=== PATIENT | male | born 1940 | race Caucasian/White ===

== ENCOUNTER → 2016-04-06 | Day surgery (SDC) | payer BC ==
[2016-03-31 12:59] VITALS: BMI 27.0
[~2016-04-06] VITALS: Ht 188 cm; Wt 95.5 kg
[~2016-04-06] MED LIST: ADVIN25/60 INH; ALBU18002 INH; ALLO300T2 PO; AMIO200T4 PO; APIX1TAB3 PO; ASPCH81X PO; ATOR-24 PO; CARV12.52 PO; CHOL20009 PO; CIPROFLOXACIN 400MG / 200ML D5W IV ONE; CIPROFLOXACIN 500 MG TAB PO ONE; DOCU100C31 PO; FLUT0.15 NAE; FRS/40 PO; LEVO75TA5 PO; LIDOCAINE HCL 2% 2 ML VIAL (20MG/ML) ONE; MONT1TAB5 PO; NURSING VERBAL MED ORDER ONE; PHENYLEPHRINE 100MCG/ML 5ML SYR ONE; PROPOFOL IV EMULSION 10 MG/ML 20 ML VIAL IV ONE; RANI150T3 PO; REPA2TAB13 PO; ROFL1TAB5 PO; SODIUM CHLORIDE 0.9% 500ML 500 ML IV ONE; SPRIN/30 INH
[2016-04-06 12:17] VITALS: Ht 188 cm; Wt 95.5 kg
--- NOTE | 2016-04-06 13:39 | Endo History and Physical ---
History & Physical Date of Service: Apr 06, 2016. Chief Complaint: HX OF COLON POLYPS Referring Physician: DR. MASSEY History of Present Illness H/o colon polyps Past Surgical History Hx Cardiac Surgery: Yes (HEART CATH-NO STENTS, CABG-2 VESSELS) Hx Internal Defibrillator: Yes ([employer] 2007) Hx Pacemaker: Yes ([employer] 2007) Hx Abdominal Surgery: No Hx of Implantable Prosthesis: No Hx Post-Op Nausea and Vomiting: No Hx Cancer Surgery: No Hx Thoracic Surgery: No Hx Orthopedic: Yes (LUMBAR LAMINECTOMY, LEFT/RT MIGUELITO) Hx Urinary Tract Surgery: No Family History None Social History Smoking Status: Former Smoker Hx Substance Use: No Hx Alcohol Use: Yes (1 GLASS OF WINE EVERY NIGHT) Allergies Coded Allergies: Adhesives (Verified Allergy, Unknown, PULLS SKIN OFF, 04/06/16) Oxaprozin (Verified Allergy, Unknown, KIDNEYS SHUT DOWN, 04/06/16) Current Medications Reported Home Medications Medications Dose Route/Sig Max Daily Dose Days Date Category Vitamin D (Cholecalciferol) 2,000 Unit Tab 1 Tab PO BID 03/31/16 Reported Advair Diskus 250/50 60 Dose (Fluticasone Prop/Salmeterol) 1 Ea Aerp 1 Puff INH BID 03/31/16 Reported Cordarone (Amiodarone Hcl) 200 Mg Tab 200 Mg PO BID 03/31/16 Reported Eliquis (Apixaban) 5 Mg Tab 1 Tab PO BID 03/31/16 Reported Spiriva Handihaler (Tiotropium [place]) 30 Puff/540 Mcg Aerp 1 Cap INH QAM 03/31/16 Reported Daliresp (Roflumilast) 500 Mcg Tab 1 Tab PO QAM 30 03/31/16 Reported Prandin (Repaglinide) 2 Mg Tab 2 Mg PO TID 03/31/16 Reported Zantac (Ranitidine HCl) 150 Mg Tab 150 Mg PO BID 03/31/16 Reported Montelukast Sodium 10 Mg Tab 1 Tab PO QAM 90 03/31/16 Reported Levothyroxine Sodium 75 Mcg Tab 1 Tab PO QAM 90 03/31/16 Reported Lasix (Furosemide) 40 Mg Tab 1.5 Tab PO QAM 03/31/16 Reported Flonase Allergy Relief (Fluticasone Propionate (Nasal)) 50 Mcg/Act Spr 2 Rochert BRITTON DIRECTED PRN 03/31/16 Reported Docusate Sodium 100 Mg Cap 1 Cap PO BID PRN 7 03/31/16 Reported Aspirin Chewable (Aspirin) 81 Mg Chew 81 Mg PO QAM 03/31/16 Reported Zyloprim (Allopurinol) 300 Mg Tab 300 Mg PO QAM 03/31/16 Reported Proair Respiclick (Albuterol Sulfate) 108 Mcg/Act Aer 2 Puff INH QID PRN 03/31/16 Reported Coreg (Carvedilol) 12.5 Mg Tab 1 Tab PO BID 90 03/31/16 Reported Lipitor (Atorvastatin Calcium) 40 Mg Tab 40 Mg PO HS 03/31/16 Reported Vital Signs Weight (Kilograms): 95.45 Height (Feet): 6 Height (Inches): 2 Date Time Temp Pulse Resp B/P Pulse Ox O2 Delivery O2 Flow Rate FiO2 04/06/16 12:18 36.8 66 18 148/85 95 Room Air Physical Exam General Appearance: no apparent distress Respiratory/Chest: Auscultation: breath sounds normal Cardiovascular: Heart Auscultation: RRR Abdomen: Inspection & Palpation: soft Assessment and Plan H/o polyps - cscopy
--- NOTE | 2016-04-06 14:58 | Anesthesiology Progress Note ---
Anesthesia Post Op Note Date & Time Apr 06, 2016 at 14:58 Vital Signs Vital Signs Past 12 Hours Date Time Temp Pulse Resp B/P Pulse Ox O2 Delivery O2 Flow Rate FiO2 04/06/16 12:18 36.8 66 18 148/85 95 Room Air Notes Mental Status: alert / awake / arousable, participated in evaluation Pt Amnestic to Procedure: Yes Nausea / Vomiting: adequately controlled Pain: adequately controlled Airway Patency, RR, SpO2: stable & adequate BP & HR: stable & adequate Hydration State: stable & adequate Anesthetic Complications: no major complications apparent
[2016-04-06 15:19] VITALS: BP 160/69; PULSE 60; O2SAT 96
--- NOTE | 2016-04-06 15:43 | GI REPORT ---
Procedure Date: 04/06/2016 1:36 PM Procedure: Colonoscopy Indications: High risk colon cancer surveillance: Personal history of colonic polyps Medicines: See the Anesthesia note for documentation of the administered medications Complications: No immediate complications. Estimated Blood Loss: Estimated blood loss: none. Procedure: Pre-Anesthesia Assessment: - ASA Grade Assessment: III - A patient with severe systemic disease. After I obtained informed consent, the scope was passed under direct vision. Throughout the procedure, the patient's blood pressure, pulse, and oxygen saturations were monitored continuously. The Scope was introduced through the anus and advanced to the cecum, identified by appendiceal orifice and ileocecal valve. The colonoscopy was performed with difficulty due to number of polyps removed. The patient tolerated the procedure well. Findings: The perianal and digital rectal examinations were normal. Multiple small and large-mouthed diverticula were found in the sigmoid colon and in the descending colon. A 6 mm polyp was found in the ascending colon. The polyp was sessile. The polyp was removed with a saline injection-lift technique using a hot snare. Resection and retrieval were complete. A 15 mm polyp was found at the hepatic flexure. The polyp was semi-sessile. The polyp was removed with a saline injection-lift technique using a hot snare. Resection and retrieval were complete. To prevent bleeding after the polypectomy, four hemostatic clips were successfully placed. There was no bleeding at the end of the procedure. Two sessile polyps were found at the hepatic flexure. The polyps were 4 to 5 mm in size. These polyps were removed with a hot snare. Resection and retrieval were complete. Three sessile polyps were found in the transverse colon. Two of these polyps were removed with a saline injection-lift technique using a hot snare; one of these was removed with a hot snare. Resection and retrieval were complete. Two clips were placed on one of these polypectomy sites, and 1 clip was placed on one of these polypectomy sites. Two sessile polyps were found in the descending colon. The polyps were 2 to 4 mm in size. These polyps were removed with a hot snare. Resection and retrieval were complete. Five polyps were found in the sigmoid colon. The polyps were 2 to 10 mm in size. Three of these polyps were removed with a saline injection-lift technique using a hot snare; two of these were removed with a hot snare. Resection and retrieval were complete. One of these sites was clipped. Impression: - Diverticulosis in the sigmoid colon and in the descending colon. - Fourteen polyps. Recommendation: - Discharge patient to home. Hold Eliquis for 5 days. Repeat exam in 6-12 mos, based on pathology results. Rylee Baltazar M.D. Rylee Baltazar MD 04/06/2016 3:43:19 PM This report has been signed electronically. Note Initiated On: 04/06/2016 1:36 PM I attest to the content of the Intraoperative Record and orders documented therein, exceptions below
--- NOTE | 2016-04-06 15:43 | Discharge Instructions ---
Endoscopy Patient Instructions Date / Procedure(s) Performed Apr 06, 2016. Colonoscopy Allergy Information Coded Allergies: Adhesives (Verified Adverse Reaction, Intermediate, PULLS SKIN OFF, 04/06/16 ) Oxaprozin (Verified Adverse Reaction, Intermediate, KIDNEYS SHUT DOWN, 04/06) Discharge Date / Findings Apr 06, 2016. Multiple polyps, diverticulosis Medication Instructions Stopped Medication(s): PT. STATE HE STOPPED THE MEDICATIONS THEY TOLD HIM TO BUT IS UNSURE OF THE NAME OF ALL OF THEM. Restart Stopped Medication(s): Resume Eliquis in 5 days Provider Instructions Activity Restrictions - No exercising or heavy lifting for 24 hours. - Do not drink alcohol the day of the procedure. - Do not drive a car or operate machinery until the day after the procedure. - Do not make any important decisions or sign important papers in 24 hours after the procedure. Following Day: - Return to full activity which may include returning to work/school. Diet Start your diet with liquids and light foods (jello, soup, juice, toast). Then eat your usual diet if not nauseated. Treatment For Common After Affects For mild abdominal pain, bloating, or excessive gas: - Rest - Eat lightly - Lie on right side Follow-Up Information Follow-up with DR. MASSEY as scheduled Anesthesia Information What You Should Know You have had a procedure that required some medicine to reduce anxiety and discomfort. This treatment is called moderate sedation. After receiving the treatment, you may be sleepy, but you will be able to breathe on your own. The effects of the treatment may last for several hours. Follow these instructions along with Activity/Diet recommendations noted above: * Do NOT do anything where dizziness or clumsiness would be dangerous. * Rest quietly at home today, then you can be up and about tomorrow. * Have a responsible person stay with you the rest of today. * You may have had an I.V. today. If so, you may take the dressing off later today. Recommendations Call your doctor if: * Trouble breathing * Continuous vomiting for more than 24 hours * Temperature above 101 degrees * Severe abdominal pain or bloating * Pain not relieved by pain medicine ordered * There is increased drainage or redness from any incision * A large amount of rectal bleeding greater than 2-3 tablespoons. (If you had a polyp/s removed or have hemorrhoids, a small amount of blood - from the rectum is to be expected.) * You have any unanswered questions or concerns. IN THE EVENT OF A SERIOUS EMERGENCY, GO TO THE NEAREST EMERGENCY ROOM Your discharge instructions were prepared by provider Rylee Feng. Patient Instructions Signature Page Jose Antonio Lemon Patient (or Guardian) Signature/Date: I have read and understand the instructions given to me by my caregivers. Caregiver/RN/Doctor Signature/Date: The above-named patient and/or guardian has received patient instructions on this date. + Original Patient Signature Page (only) stays with chart. Please make copy for patient.
== END | disposition home or self-care (01) ==
LOC: C.GI 11:39
PROVIDERS: ATTEND Internal Medicine Gastroenterology
DX: Z12.11 Encounter for screening for malignant neoplasm of colon (principal); Z86.010 Personal history of colon polyps; D12.3 Benign neoplasm of transverse colon; D12.6 Benign neoplasm of colon, unspecified; K57.30 Diverticulosis of large intestine without perforation or abscess without bleeding; Z87.891 Personal history of nicotine dependence; Z88.8 Allergy status to other drugs, medicaments and biological substances; Z79.01 Long term (current) use of anticoagulants; Z88.1 Allergy status to other antibiotic agents; Z98.890 Other specified postprocedural states; Z79.82 Long term (current) use of aspirin

== ENCOUNTER 2017-03-03 12:51 | Inpatient (IN) | payer BC, OTHER ==
[~2017-03-03] VITALS: Ht 188 cm; Wt 91.8 kg
[~2017-03-03 12:51] MED LIST changes: -CIPROFLOXACIN 400MG / 200ML D5W IV ONE; -CIPROFLOXACIN 500 MG TAB PO ONE; -LIDOCAINE HCL 2% 2 ML VIAL (20MG/ML) ONE; -NURSING VERBAL MED ORDER ONE; -PHENYLEPHRINE 100MCG/ML 5ML SYR ONE; -PROPOFOL IV EMULSION 10 MG/ML 20 ML VIAL IV ONE; +REPA2TAB12 PO; -REPA2TAB13 PO; -SODIUM CHLORIDE 0.9% 500ML 500 ML IV ONE
[2017-03-03 13:34] LABS: BASO % 0.4 %; BASO ABS # 0.05 K/uL (0-0.2); EOS % 1.1 %; EOS ABS # 0.13 K/uL (0-0.5); HEMATOCRIT 35.3 % (42-52); HEMOGLOBIN 11.5 g/dL (14.0-18.0); IG# 0.12 K/uL (0.00-0.02); LYMPH % 8.8 %; LYMPH ABS # 1.03 K/uL (1.2-3.4); MEAN CELL VOLUME 98.1 fL (80-100); MEAN CORPUSCULAR HEMOGLOBIN 31.9 pg (25-34); MEAN CORPUSCULAR HGB CONC 32.6 g/dl (32-36); MEAN PLATELET VOLUME 9.5 fL (7.4-10.4); MONO % 6.4 %; MONO ABS # 0.75 K/uL (0.11-0.59); NEUT % 82.3 %; NEUT ABS # 9.66 K/uL (1.4-6.5); NUCLEATED RED BLOOD CELL ABS 0.05 K/uL (0-0); PLATELET COUNT 283 K/uL (130-400); RED CELL DISTRIBUTION WIDTH CV 16.3 % (11.5-14.5); RED CELL DISTRIBUTION WIDTH SD 58.2 fL (36.4-46.3); WHITE BLOOD COUNT 11.74 K/uL (4.8-10.8)
--- NOTE | 2017-03-03 13:34 | EMERGENCY ROOM VISIT NOTE ---
History First contact with patient: 12:55 Chief Complaint: SHORTNESS OF BREATH Stated Complaint: CHEST PAIN, NECK PAIN, LEG SWELLING History of Present Illness The patient is a 76 year old male who presents to the Emergency Room with complaints of a 3 day history of shortness of breath and chest pain with radiation to his neck on exertion. He reports he is only able to walk a few feet before these symptoms occur and that they resolve after he rests. He states he has never had these symptoms before and that previously, he was able to carry out his day to day activities with no pain or SOB. He states his chest pain is in the center of his chest, and describes it as a 2/10 nagging pressure that radiates to his neck, where he feels the pain more severely, at an 8/10. He denies a past history of an MO, but did have a double bypass in 1991. He also reports a history of atrial fibrillation that failed ablation and subsequently had a pacemaker/defibrillator placed. He is on coumadin for anticoagulation, and was changed over from Eliquis 3 months ago. He follows with Jey Gee for his heart conditions who recently added 5mg of isordil to his medication regimen. He reports he has been dizzy whilst changing from sitting to standing recently. He denies a history of CHF, but states he noticed he has put on 8 pounds of weight in the last 3 days. His reports his legs have been swollen over the last few days as well, and he has not had this problem in the past. Mr. Lemon denies orthoponea and PND. He also denies fever, chills, cough, but states he has occasional wheezing. He also reports he has a history of COPD, and is currently on a tapering dose of prednisone for an infection diagnosed a month ago. He is a prior smoker, who smoked 3 packs per day for 25-30 years. Review of Systems See HPI for pertinent positives & negatives. A total of 10 systems reviewed and were otherwise negative. Past Medical/Surgical History Medical Problems: (1) Asthma (2) Blood clot in vein (3) Bronchitis (4) Diabetes (5) Emphysema/COPD (6) Heart disease (7) Hypertension (8) Kidney disease (9) Pacemaker (10) Pneumonia (11) Shoulder strain (12) Shoulder strain Surgical Problems: (1) History of hip replacement, total (2) Status post double vessel coronary artery bypass Social History Smoking Status: Never Smoker Alcohol Use: none Drug Use: none Marital Status: Housing Status: lives with significant other Occupation Status: retired Current/Historical Medications Scheduled Allopurinol (Zyloprim), 300 MG PO QAM Aspirin (Aspirin Chewable), 81 MG PO QAM Cholecalciferol (Vitamin D), 1 TAB PO DAILY Fluticasone Prop/Salmeterol (Advair Diskus 250/50 60 Dose), 1 PUFF INH BID Furosemide (Lasix), 40 MG PO QAM Isosorbide Dinitrate (Isordil), 5 MG PO BID Levothyroxine Sodium (Synthroid), 125 MCG PO DAILY Metoprolol Succinate (Metoprolol Succinate ER), 50 MG PO DAILY Montelukast Sodium (Montelukast Sodium), 1 TAB PO QAM Prednisone Tab (Prednisone), 10 MG PO DAILY Ranitidine Hcl (Zantac), 150 MG PO BID Roflumilast (Daliresp), 1 TAB PO QAM Tiotropium [place] (Spiriva Handihaler), 1 CAP INH QAM Warfarin Sod (Jantoven), 2.5 MG PO 5XWK Warfarin Sod (Coumadin), 1.25 MG PO 2XWK Scheduled PRN Albuterol Sulfate (Proair Respiclick), 2 PUFF INH QID PRN for Shortness of Breath Physical Exam Vital Signs Date Time Temp Pulse Resp B/P (MAP) Pulse Ox O2 Delivery O2 Flow Rate FiO2 03/03/17 13:39 98 Room Air 03/03/17 13:37 96 Room Air 03/03/17 13:37 119 20 108/77 95 Room Air 03/03/17 13:17 121 03/03/17 12:56 36.3 113 20 78/42 94 Room Air 86/46 Physical Exam HEENT: Head - normocephalic and atraumatic. Mouth - moist buccal mucosa. Oropharynx is nonerythematous and there is no tonsillar exudate or edema noted. Neck: Supple; no JVD, nuchal rigidity, cervical lymphadenopathy, or auscultated bruits. Heart: Pacemaker present on left side of chest. Regular rate and rhythm. There is a normal S1 and S2 with no murmurs, clicks, or gallops appreciated. Lungs: Clear to auscultation bilaterally with slight expiratory wheeze. Abdomen: Soft, mildly tender in epigastric region, nondistended, with good bowel sounds. There are no palpable pulsatile masses or hepatosplenomegaly. There is no guarding, rigidity, or rebound noted. Extremities: Bruising over arms. No evidence of cyanosis, clubbing, or edema. There are easily palpable peripheral pulses. Neuro:The patient is awake and alert, oriented to day, time, and place. Medical Decision & Procedures ER Provider Diagnostic Interpretation: CHEST ONE VIEW PORTABLE CLINICAL HISTORY: Evaluate Fever/Sepsis dyspnea COMPARISON STUDY: No previous studies for comparison. FINDINGS: Moderate cardiomegaly. Permanent bipolar cardiac pacemaker/defibrillator. Interstitial infiltrative change left base and peripheral right apex. IMPRESSION: Bilateral parenchymal infiltrates. Postoperative changes as noted. Laboratory Results 03/03/17 13:15 Red Blood Count 3.60, Mean Corpuscular Volume 98.1, Mean Corpuscular Hemoglobin 31.9, Mean Corpuscular Hemoglobin Concent 32.6, Mean Platelet Volume 9.5, Neutrophils (%) (Auto) 82.3, Lymphocytes (%) (Auto) 8.8, Monocytes (%) (Auto) 6.4, Eosinophils (%) (Auto) 1.1, Basophils (%) (Auto) 0.4, Neutrophils # (Auto) 9.66, Lymphocytes # (Auto) 1.03, Monocytes # (Auto) 0.75, Eosinophils # (Auto) 0.13, Basophils # (Auto) 0.05 03/03/17 13:15 Test 03/03/17 13:15 White Blood Count 11.74 K/uL (4.8-10.8) Red Blood Count 3.60 M/uL (4.7-6.1) Hemoglobin 11.5 g/dL (14.0-18.0) Hematocrit 35.3 % (42-52) Mean Corpuscular Volume 98.1 fL (80-100) Mean Corpuscular Hemoglobin 31.9 pg (25-34) Mean Corpuscular Hemoglobin Concent 32.6 g/dl (32-36) Platelet Count 283 K/uL (130-400) Mean Platelet Volume 9.5 fL (7.4-10.4) Neutrophils (%) (Auto) 82.3 % Lymphocytes (%) (Auto) 8.8 % Monocytes (%) (Auto) 6.4 % Eosinophils (%) (Auto) 1.1 % Basophils (%) (Auto) 0.4 % Neutrophils # (Auto) 9.66 K/uL (1.4-6.5) Lymphocytes # (Auto) 1.03 K/uL (1.2-3.4) Monocytes # (Auto) 0.75 K/uL (0.11-0.59) Eosinophils # (Auto) 0.13 K/uL (0-0.5) Basophils # (Auto) 0.05 K/uL (0-0.2) RDW Standard Deviation 58.2 fL (36.4-46.3) RDW Coefficient of Variation 16.3 % (11.5-14.5) Immature Granulocyte % (Auto) 1.0 % Immature Granulocyte # (Auto) 0.12 K/uL (0.00-0.02) Nucleated RBC Absolute Count (auto) 0.05 K/uL (0-0) Nucleated Red Blood Cells % 0.4 % Prothrombin Time 20.1 SECONDS (9.0-12.0) Prothromb Time International Ratio 1.9 (0.9-1.1) Activated Partial Thromboplast Time 37.3 SECONDS (21.0-31.0) Partial Thromboplastin Ratio 1.4 Anion Gap 8.0 mmol/L (3-11) Est Creatinine Clear Calc Drug Dose 41.8 ml/min Estimated GFR () 43.5 Estimated GFR (Non- 37.5 BUN/Creatinine Ratio 15.4 (10-20) Calcium Level 8.7 mg/dl (8.5-10.1) Total Bilirubin 0.8 mg/dl (0.2-1) Direct Bilirubin 0.2 mg/dl (0-0.2) Aspartate Amino Transf (AST/SGOT) 48 U/L (15-37) Alanine Aminotransferase (ALT/SGPT) 50 U/L (12-78) Alkaline Phosphatase 95 U/L (45-117) Total Creatine Kinase 34 U/L (39-308) Creatine Kinase MB 1.0 ng/ml (0.5-3.6) Creatine Kinase MB Ratio 2.9 (0-3.0) Troponin I 0.146 ng/ml (0-0.045) Total Protein 7.1 gm/dl (6.4-8.2) Albumin 2.8 gm/dl (3.4-5.0) Lipase 85 U/L (73-393) ECG Indication: chest pain, SOB/dyspnea Rate (beats per minute): 118 Rhythm: normal sinus Findings: nonspecific-ST abn, no ectopy ED Course 12:55: The patient was evaluated in room C2. A complete history and physical exam was performed. 1:45: The case was discussed with the attending physician, Dr. Mac. 14:15: The patient was reassessed. He was resting comfortably in bed. He did not report any new concerns or chest pain. His laboratory results were discussed with him and he was agreeable to admission. 14:22: 5mg of IV Lopressor and 500 mls of NS bolus ordered 14:25: The case was discussed with JAMILAH Zepeda who will further evaluate the patient for admission. Medical Decision Etiologies such as NSTEMI, unstable angina, pulmonary embolism, pneumonia, pneumothorax, musculoskeletal, infections as well as others were entertained. Mr. Lemon is a 76 year old gentleman with a PMH of CAD s/p 2 vessel bypass in 1992, COPD, DM, afib s/p defib/pacemaker placement, and HTN who presented with a 3 day history of chest pain and shortness of breath on exertion. His blood pressure was low and he was tachycardic, therefore 5mg of IV lopressor and 500mls of NS were ordered. His white cell count was elevated at 11.7, however he is on oral prednisone. His sodium was 128, potassium 3.6 and creatinine 1.72. His EKG showed nonspecific T wave changes and his troponin was elevated at 0.146. We do not have a prior troponin to compare this with. Given his symptoms and troponin elevation, his story is concerning for unstable angina and warrants further cardiac evaluation. This was discussed with Mr. Lemon and his and they were agreeable to admission. Impression Primary Impression: Chest pain on exertion Additional Impressions: Shortness of breath on exertion Elevated troponin Departure Information Dispostion Being Evaluated By Hospitalist Referrals Jey Gee PA-C (PCP) Patient Instructions My [facility] Resident Tracking Resident Involvement: Resident Care Provided Care Provided: Adult ED Problem Qualifiers
[2017-03-03 13:49] LABS: INR 1.9 (0.9-1.1); PTT PATIENT 37.3 SECONDS (21.0-31.0)
[2017-03-03 13:51] LABS: ALBUMIN 2.8 gm/dl (3.4-5.0); CALCIUM 8.7 mg/dl (8.5-10.1); CREATININE 1.72 mg/dl (0.60-1.40); POTASSIUM 3.6 mmol/L (3.5-5.1)
[2017-03-03 14:07] LABS: TOTAL PROTEIN 7.1 gm/dl (6.4-8.2)
--- NOTE | 2017-03-03 14:08 | DIAGNOSTIC IMAGING REPORT ---
CHEST ONE VIEW PORTABLE CLINICAL HISTORY: Evaluate Fever/Sepsis dyspnea COMPARISON STUDY: No previous studies for comparison. FINDINGS: Moderate cardiomegaly. Permanent bipolar cardiac pacemaker/defibrillator. Interstitial infiltrative change left base and peripheral right apex. IMPRESSION: Bilateral parenchymal infiltrates. Postoperative changes as noted. The above report was generated using voice recognition software. It may contain grammatical, syntax or spelling errors. Electronically signed by: Jey Patel M.D. 03/03/2017 2:07 PM Dictated Date/Time: 03/03/2017 2:06 PM
[2017-03-03] MEDS ORDERED: METOPROLOL TARTRATE 1 MG/ML VIAL IV STA (14:22)
[2017-03-03] MEDS ORDERED: SODIUM CHLORIDE 0.9% 500ML 500 ML IV STA (14:22)
[2017-03-03] MEDS ORDERED: PRED10TA PO (14:38)
[2017-03-03] MEDS ORDERED: WARF2.5T8 PO (14:38)
[2017-03-03] MEDS ORDERED: TPRSR/50 PO (14:38)
[2017-03-03] MEDS ORDERED: ISR/5 PO (14:38)
[2017-03-03] MEDS ORDERED: CMD/25 PO (14:38)
[2017-03-03] MEDS ORDERED: LEVO125T72 PO (14:38)
--- NOTE | 2017-03-03 14:49 | EMERGENCY ROOM VISIT NOTE ---
History Report prepared by Bharathi: Joshua Hannah Under the Supervision of: Keaton SethiO. 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 He notes the shortness of breath worsens with exertion. He states that he becomes lightheaded when he stands. He also notes chest pain that radiates to his neck. He notes that he has never had chest pain like this before. He currently rates his pain an 8/10 in severity. He notes leg swelling. He notes that he has gained eight pounds in the last three days. He notes that he has never experienced leg swelling before. He is on 20 mg Prednisone due to COPD exacerbation one month ago. He is a former smoker of 3ppd for 30 years. He has a history of atrial fibrillation, COPD, asthma, CKD, CAD, and DM. He denies any fever, chills, cough, nocturnal dyspnea, and orthopnea. 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 He denies any nocturnal dyspnea and orthopnea. Review of Systems See HPI for pertinent positives & negatives. A total of 10 systems reviewed and were otherwise negative. Past Medical & Surgical Medical Problems: (1) Asthma (2) Blood clot in vein (3) Bronchitis (4) Diabetes (5) Emphysema/COPD (6) Heart disease (7) Hypertension (8) Kidney disease (9) Pacemaker (10) Pneumonia (11) Shoulder strain (12) Shoulder strain Surgical Problems: (1) History of hip replacement, total (2) Status post double vessel coronary artery bypass Family History Cancer Diabetes mellitus Heart disease Hypertension Lung disease Social History Smoking Status: Former Smoker (3ppd for 30 years) Smokeless Tobacco Use: No Alcohol Use: occasionally (1 glass nightly) Drug Use: none Marital Status: Housing Status: lives with significant other Occupation Status: retired Current/Historical Medications Scheduled Allopurinol (Zyloprim), 300 MG PO QAM Aspirin (Aspirin Chewable), 81 MG PO QAM Cholecalciferol (Vitamin D), 1 TAB PO DAILY Fluticasone Prop/Salmeterol (Advair Diskus 250/50 60 Dose), 1 PUFF INH BID Furosemide (Lasix), 40 MG PO QAM Isosorbide Dinitrate (Isordil), 5 MG PO BID Levothyroxine Sodium (Synthroid), 125 MCG PO DAILY Metoprolol Succinate (Metoprolol Succinate ER), 50 MG PO DAILY Montelukast Sodium (Montelukast Sodium), 1 TAB PO QAM Prednisone Tab (Prednisone), 10 MG PO DAILY Ranitidine Hcl (Zantac), 150 MG PO BID Roflumilast (Daliresp), 1 TAB PO QAM Tiotropium [place] (Spiriva Handihaler), 1 CAP INH QAM Warfarin Sod (Jantoven), 2.5 MG PO 5XWK Warfarin Sod (Coumadin), 1.25 MG PO 2XWK Scheduled PRN Albuterol Sulfate (Proair Respiclick), 2 PUFF INH QID PRN for Shortness of Breath Allergies Coded Allergies: Adhesives (Verified Adverse Reaction, Intermediate, PULLS SKIN OFF, 03/03/17 ) Oxaprozin (Verified Adverse Reaction, Intermediate, KIDNEYS SHUT DOWN, 03/03) Physical Exam Vital Signs Date Time Temp Pulse Resp B/P (MAP) Pulse Ox O2 Delivery O2 Flow Rate FiO2 03/03/17 13:39 98 Room Air 03/03/17 13:37 96 Room Air 03/03/17 13:37 119 20 108/77 95 Room Air 03/03/17 13:17 121 03/03/17 12:56 36.3 113 20 78/42 94 Room Air 86/46 Physical Exam CONSTITUTIONAL/VITAL SIGNS: Reviewed / noted above. GENERAL: Non-toxic in appearance. INTEGUMENTARY: Warm, dry, and [place]. HEAD: Normocephalic. EYES: without scleral icterus or trauma. ENT/OROPHARYNX: clear and moist. LYMPHADENOPATHY/NECK: Is supple without lymphadenopathy or meningismus. RESPIRATORY: Lungs clear and equal. CARDIOVASCULAR: Regular rate and rhythm. GI/ABDOMEN: Soft and nontender. No organomegaly or pulsatile mass. No rebound or guarding. Normal bowel sounds. EXTREMITIES: Warm and well perfused. Bilateral pedal edema. BACK: No CVA tenderness. NEUROLOGICAL: Intact without focal deficits. PSYCHIATRIC: normal affect. MUSCULOSKELETAL: Normally developed with good muscle tone. Medical Decision & Procedures ER Provider Diagnostic Interpretation: Radiology results as stated below per my review and radiologist interpretation: CHEST ONE VIEW PORTABLE CLINICAL HISTORY: Evaluate Fever/Sepsis dyspnea COMPARISON STUDY: No previous studies for comparison. FINDINGS: Moderate cardiomegaly. Permanent bipolar cardiac pacemaker/defibrillator. Interstitial infiltrative change left base and peripheral right apex. IMPRESSION: Bilateral parenchymal infiltrates. Postoperative changes as noted. The above report was generated using voice recognition software. It may contain grammatical, syntax or spelling errors. Electronically signed by: Jey Patel M.D. 03/03/2017 2:07 PM Dictated Date/Time: 03/03/2017 2:06 PM Laboratory Results 03/03/17 13:15 Red Blood Count 3.60, Mean Corpuscular Volume 98.1, Mean Corpuscular Hemoglobin 31.9, Mean Corpuscular Hemoglobin Concent 32.6, Mean Platelet Volume 9.5, Neutrophils (%) (Auto) 82.3, Lymphocytes (%) (Auto) 8.8, Monocytes (%) (Auto) 6.4, Eosinophils (%) (Auto) 1.1, Basophils (%) (Auto) 0.4, Neutrophils # (Auto) 9.66, Lymphocytes # (Auto) 1.03, Monocytes # (Auto) 0.75, Eosinophils # (Auto) 0.13, Basophils # (Auto) 0.05 03/03/17 13:15 Test 03/03/17 13:15 White Blood Count 11.74 K/uL (4.8-10.8) Red Blood Count 3.60 M/uL (4.7-6.1) Hemoglobin 11.5 g/dL (14.0-18.0) Hematocrit 35.3 % (42-52) Mean Corpuscular Volume 98.1 fL (80-100) Mean Corpuscular Hemoglobin 31.9 pg (25-34) Mean Corpuscular Hemoglobin Concent 32.6 g/dl (32-36) Platelet Count 283 K/uL (130-400) Mean Platelet Volume 9.5 fL (7.4-10.4) Neutrophils (%) (Auto) 82.3 % Lymphocytes (%) (Auto) 8.8 % Monocytes (%) (Auto) 6.4 % Eosinophils (%) (Auto) 1.1 % Basophils (%) (Auto) 0.4 % Neutrophils # (Auto) 9.66 K/uL (1.4-6.5) Lymphocytes # (Auto) 1.03 K/uL (1.2-3.4) Monocytes # (Auto) 0.75 K/uL (0.11-0.59) Eosinophils # (Auto) 0.13 K/uL (0-0.5) Basophils # (Auto) 0.05 K/uL (0-0.2) RDW Standard Deviation 58.2 fL (36.4-46.3) RDW Coefficient of Variation 16.3 % (11.5-14.5) Immature Granulocyte % (Auto) 1.0 % Immature Granulocyte # (Auto) 0.12 K/uL (0.00-0.02) Nucleated RBC Absolute Count (auto) 0.05 K/uL (0-0) Nucleated Red Blood Cells % 0.4 % Prothrombin Time 20.1 SECONDS (9.0-12.0) Prothromb Time International Ratio 1.9 (0.9-1.1) Activated Partial Thromboplast Time 37.3 SECONDS (21.0-31.0) Partial Thromboplastin Ratio 1.4 Anion Gap 8.0 mmol/L (3-11) Est Creatinine Clear Calc Drug Dose 41.8 ml/min Estimated GFR () 43.5 Estimated GFR (Non- 37.5 BUN/Creatinine Ratio 15.4 (10-20) Calcium Level 8.7 mg/dl (8.5-10.1) Total Bilirubin 0.8 mg/dl (0.2-1) Direct Bilirubin 0.2 mg/dl (0-0.2) Aspartate Amino Transf (AST/SGOT) 48 U/L (15-37) Alanine Aminotransferase (ALT/SGPT) 50 U/L (12-78) Alkaline Phosphatase 95 U/L (45-117) Total Creatine Kinase 34 U/L (39-308) Creatine Kinase MB 1.0 ng/ml (0.5-3.6) Creatine Kinase MB Ratio 2.9 (0-3.0) Troponin I 0.146 ng/ml (0-0.045) Total Protein 7.1 gm/dl (6.4-8.2) Albumin 2.8 gm/dl (3.4-5.0) Lipase 85 U/L (73-393) Laboratory results as stated above per my review. ECG Indication: chest pain, SOB/dyspnea Rate (beats per minute): 118 Rhythm: sinus tachycardia Findings: no acute ischemic change, no ectopy ED Course 1420: Previous medical records were reviewed. The patient was evaluated in room C2B. A complete history and physical examination was performed. 1422: Metoprolol Tartrate 5 mg IV and Sodium Chloride 500 ml @ 999 mls/hr IV 1425: I spoke with JAMILAH Zepdea. We discussed the patients case. The patient will be evaluated by the [facility] for further management. Medical Decision Differentials considered include acute myocardial infarction, acute coronary syndrome, myocarditis, pericarditis, pericardial effusions /tamponade, esophageal perforation, thoracic aortic dissection, pulmonary embolism, pneumonia, pneumothorax, pancreatitis, shingles, acute cholecystitis, and perforated abdominal viscus. This is a 76-year-old male who presents to the ED with a chief complaint of exertional chest pain or shortness of breath. He reports that the symptoms ongoing over the past 3 days. It is associated with minimal activity. He also reports edema in the lower 70s and a palpable weight gain over the past 3 days. The patient has history of COPD and CAD. He has had two-vessel bypass in the . He also reports a history of A. fib and pacemaker defibrillator. Patient's last cardiac catheterization was couple of years ago at [place]. Initial vital signs revealed hypotension. This seemed to resolve without specific treatment although he was tachycardic during his ED evaluation. He was given normal saline 500 mL IV and Lopressor 5 mg IV. The patient's troponin was elevated. His EKG did not show any ST elevations but did show a sinus tachycardia with some nonspecific ST changes. He is currently pain-free any symptomatically. Patient's blood work did not show any significant anemia. He does have some renal insufficiency. Chest x-ray did show bilateral infiltrative changes. The patient recently finished a course of antibiotics and states that his respiratory issues have mostly resolved. He is still on some steroids. The patient is chronically on Coumadin. His INR is 1.9. He will be seen by the hospitalist for further inpatient evaluation and care. Medication Reconcilliation Current Medication List: was personally reviewed by me Blood Pressure Screening Patient's blood pressure: Normal blood pressure Consults Time Called: 1420 Consulting Physician: JAMILAH Zepeda Returned Call: 1427 I spoke with JAMILAH Zepeda. We discussed the patients case. The patient will be evaluated by the [facility] for further management. Impression Primary Impression: Unstable angina Additional Impression: Elevated troponin Scribe Attestation The scribe's documentation has been prepared under my direction and personally reviewed by me in its entirety. I confirm that the note above accurately reflects all work, treatment, procedures, and medical decision making performed by me. Departure Information Dispostion Being Evaluated By Hospitalist Referrals Jey Gee PA-C (PCP) Patient Instructions My [facility] Problem Qualifiers
[2017-03-03] MEDS ORDERED: ACETAMINOPHEN 325 MG TAB PO PRN (15:30)
[2017-03-03] MEDS ORDERED: NITROGLYCERIN 0.4 MG SL PER TAB CHARGE SL PRN (15:30)
[2017-03-03] MEDS ORDERED: HYDR-5688 PO (15:47)
[2017-03-03 17:46] VITALS: BP 89/68; PULSE 119; TEMP 36.6; Ht 188 cm; Wt 91.8 kg
[2017-03-03 17:52] VITALS: O2SAT 92
[2017-03-03] MEDS ORDERED: HYDROCODONE/ACETAMOPHEN 5/325MG TAB PO PRN (18:15)
[2017-03-03] MEDS ORDERED: FUROSEMIDE INJ 40 MG in SYRINGE 0 ML IV ONE (18:30)
[2017-03-03 19:18] VITALS: BP 117/75
--- NOTE | 2017-03-03 19:36 | History and Physical ---
History & Physical Date & Time of Service: Mar 03, 2017 ~ 14:45 Chief Complaint: Chest Pain, Shortness of Breath Primary Care Physician: Dr. Mtz History of Present Illness 76 year old male who presents to the ED with chest pain and shortness of breath. Patient reports his symptoms have been present for the past 3 weeks. He reports chest pain with exertion that resolves with rest after 5-10 minutes. He describes the pain as located in the mid chest and describes it as a pressure. It radiated into between the shoulder blades and up in the back of his neck. Over the past few days he has been developing these symptoms with minimal exertion. He reports associated lightheadedness but denies nausea and diaphoresis. He has had an 8lb weight gain in past 3 days. He has had increasing lower extremity edema and abdominal distention. He denies abdominal pain, vomiting, or diarrhea. No fevers or chills. He denies urinary symptoms. Patient was seen by his PCP and referred to the ED for further evaluation. In the ED, patient is tachycardic in the 110s. Labs show mildly elevated trop at 0.146 and hyponatremia at 128. EKG shows atrial flutter. He was given metoprolol 5mg IV. Patient reports he feels fine at rest. Past Medical/Surgical History Medical Problems: (1) Atrial fibrillation Status: Chronic (2) CAD (coronary artery disease) Status: Chronic (3) CKD (chronic kidney disease), stage III Status: Chronic (4) COPD (chronic obstructive pulmonary disease) Status: Chronic (5) DM (diabetes mellitus) Status: Chronic (6) Dyslipidemia Status: Chronic (7) Gout Status: Chronic (8) HTN (hypertension) Status: Chronic (9) Hypothyroidism Status: Chronic (10) Ischemic cardiomyopathy Permanent Comment: echo 11/2016 - EF 40-43% Status: Chronic (11) Presence of combination internal cardiac defibrillator (ICD) and pacemaker Status: Chronic (12) V tach Status: Chronic Surgical Problems: (1) H/O cardiac radiofrequency ablation Status: Chronic (2) History of back surgery Status: Chronic (3) History of cataract surgery Status: Chronic (4) History of left hip replacement Status: Chronic (5) History of right hip replacement Status: Chronic (6) S/P CABG x 2 Status: Chronic Family History non contributory due to patient's age Social History Smoking Status: Former Smoker Alcohol Use: none Marital Status: Immunizations History of Influenza Vaccine: Yes Influenza Vaccine Date: Nov 29, 2016 History of Tetanus Vaccine?: Yes Tetanus Immunization Date: Apr 10, 2007 History of Pneumococcal: Yes Pneumococcal Date: May 30, 2014 Multi-Drug Resistant Organisms History of MDRO: No Allergies Coded Allergies: Adhesives (Verified Adverse Reaction, Intermediate, PULLS SKIN OFF, 03/03/17 ) Oxaprozin (Verified Adverse Reaction, Intermediate, KIDNEYS SHUT DOWN, 03/03) Home Medications Scheduled Allopurinol (Zyloprim), 300 MG PO QAM Aspirin (Aspirin Chewable), 81 MG PO QAM Cholecalciferol (Vitamin D), 1 TAB PO DAILY Doxycycline Hyclate (Doxycycline Hyclate), 100 MG PO BID Fluticasone Prop/Salmeterol (Advair Diskus 250/50 60 Dose), 1 PUFF INH BID Furosemide (Lasix), 40 MG PO QAM Isosorbide Dinitrate (Isordil), 5 MG PO BID Levothyroxine Sodium (Synthroid), 125 MCG PO DAILY Montelukast Sodium (Montelukast Sodium), 1 TAB PO QAM Prednisone Tab (Prednisone), 10 MG PO DAILY Ranitidine Hcl (Zantac), 150 MG PO BID Roflumilast (Daliresp), 1 TAB PO QAM Sotalol HCl (Sotalol HCl), 80 MG PO DAILY Sotalol HCl (Sotalol HCl), 40 MG PO DAILY@1900 Tiotropium [place] (Spiriva Handihaler), 1 CAP INH QAM Warfarin Sod (Jantoven), 2.5 MG PO 5XWK Warfarin Sod (Coumadin), 1.25 MG PO 2XWK Scheduled PRN Albuterol Sulfate (Proair Respiclick), 2 PUFF INH QID PRN for Shortness of Breath Hydrocodone/Acetaminophen 5MG/325MG ([place] 5MG/325MG), 1 TABLET PO Q6H PRN for Pain Review of Systems ROS per HPI, all other systems reviewed and negative Physical Exam Vital Signs Date Time Temp Pulse Resp B/P (MAP) Pulse Ox O2 Delivery O2 Flow Rate FiO2 03/03/17 17:52 92 Room Air 03/03/17 17:46 36.6 119 20 89/68 03/03/17 16:36 120 20 119/89 93 Room Air 03/03/17 15:25 121 20 117/84 96 Room Air 03/03/17 15:25 122 117/84 03/03/17 13:39 98 Room Air 03/03/17 13:37 96 Room Air 03/03/17 13:37 119 20 108/77 95 Room Air 03/03/17 13:17 121 03/03/17 12:56 36.3 113 20 78/42 94 Room Air 86/46 General Appearance: WD/WN, no apparent distress Head: normocephalic, atraumatic Eyes: normal inspection, EOMI, sclerae normal ENT: hearing grossly normal, + pertinent finding (mucous membranes moist) Neck: supple, no JVD, trachea midline Respiratory/Chest: lungs clear, normal breath sounds, no respiratory distress Cardiovascular: normal peripheral pulses, + tachycardia (regular rhythm), + pertinent finding (+3 pitting edema BLLE) Abdomen/GI: normal bowel sounds, non tender, soft, no organomegaly, + distended Extremities/Musculoskelatal: normal inspection, no calf tenderness, normal capillary refill Neurologic/Psych: no motor/sensory deficits, alert, normal mood/affect, oriented x 3 Skin: normal color, warm/dry Diagnostics Laboratory Results Results Past 24 Hours Test 03/03/17 13:15 Range/Units White Blood Count 11.74 4.8-10.8 K/uL Red Blood Count 3.60 4.7-6.1 M/uL Hemoglobin 11.5 14.0-18.0 g/dL Hematocrit 35.3 42-52 % Mean Corpuscular Volume 98.1 80-100 fL Mean Corpuscular Hemoglobin 31.9 25-34 pg Mean Corpuscular Hemoglobin Concent 32.6 32-36 g/dl Platelet Count 283 130-400 K/uL Mean Platelet Volume 9.5 7.4-10.4 fL Neutrophils (%) (Auto) 82.3 % Lymphocytes (%) (Auto) 8.8 % Monocytes (%) (Auto) 6.4 % Eosinophils (%) (Auto) 1.1 % Basophils (%) (Auto) 0.4 % Neutrophils # (Auto) 9.66 1.4-6.5 K/uL Lymphocytes # (Auto) 1.03 1.2-3.4 K/uL Monocytes # (Auto) 0.75 0.11-0.59 K/uL Eosinophils # (Auto) 0.13 0-0.5 K/uL Basophils # (Auto) 0.05 0-0.2 K/uL RDW Standard Deviation 58.2 36.4-46.3 fL RDW Coefficient of Variation 16.3 11.5-14.5 % Immature Granulocyte % (Auto) 1.0 % Immature Granulocyte # (Auto) 0.12 0.00-0.02 K/uL Nucleated RBC Absolute Count (auto) 0.05 0-0 K/uL Nucleated Red Blood Cells % 0.4 % Prothrombin Time 20.1 9.0-12.0 SECONDS Prothromb Time International Ratio 1.9 0.9-1.1 Activated Partial Thromboplast Time 37.3 21.0-31.0 SECONDS Partial Thromboplastin Ratio 1.4 Sodium Level 128 136-145 mmol/L Potassium Level 3.6 3.5-5.1 mmol/L Chloride Level 93 98-107 mmol/L Carbon Dioxide Level 27 21-32 mmol/L Anion Gap 8.0 3-11 mmol/L Blood Urea Nitrogen 26 7-18 mg/dl Creatinine 1.72 0.60-1.40 mg/dl Est Creatinine Clear Calc Drug Dose 41.8 ml/min Estimated GFR () 43.5 Estimated GFR (Non- 37.5 BUN/Creatinine Ratio 15.4 10-20 Random Glucose 176 70-99 mg/dl Osmolality 281 280-300 mOsm/kg Calcium Level 8.7 8.5-10.1 mg/dl Total Bilirubin 0.8 0.2-1 mg/dl Direct Bilirubin 0.2 0-0.2 mg/dl Aspartate Amino Transf (AST/SGOT) 48 15-37 U/L Alanine Aminotransferase (ALT/SGPT) 50 12-78 U/L Alkaline Phosphatase 95 45-117 U/L Total Creatine Kinase 34 39-308 U/L Creatine Kinase MB 1.0 0.5-3.6 ng/ml Creatine Kinase MB Ratio 2.9 0-3.0 Troponin I 0.146 0-0.045 ng/ml Total Protein 7.1 6.4-8.2 gm/dl Albumin 2.8 3.4-5.0 gm/dl Lipase 85 73-393 U/L Diagnostic Radiology CXR IMPRESSION: Bilateral parenchymal infiltrates. Postoperative changes as noted. Impression Assessment and Plan CHEST PAIN, SHORTNESS OF BREATH ATRIAL FLUTTER ACUTE ON CHRONIC SYSTOLIC CHF, ISCHEMIC CARDIOMYOPATHY HX V-TACH, ATRIAL FIBRILLATION S/P AICD/PACEMAKER HX CAD - admit to tele - patient presenting with exertional chest pain and shortness of breath x 3 weeks; in the ED, found to have uncontrolled atrial flutter - case discussed with Dr. Martinez - patient on Coumadin for hx of a. fib, INR 1.9; will hold Coumadin a place on heparin gtt - NPO after midnight for MÓNICA and cardioversion - stop Toprol XL and place on metoprolol tartrate 25mg BID - echo 11/2016 - EF 40-43% - will diuresis with Lasix 40mg IV x 1 tonight; reassess in AM - hold isosorbide due to borderline BPs and diuresising - was managed on amiodarone however stopped due to pulmonary toxicity - serial cardiac enzymes - continue ASA - patient intolerant to statins - pacer interrogation - CXR shows BL parenchymal infiltrates however patient without cough, sputum production or fever; does have a mild leukocytosis however is on chronic steroids HYPERVOLEMIC HYPONATREMIA - should improved with diuresis - follow Na+ levels - urine and serum osmo COPD - no signs of acute exacerbation - currently on long steroid taper due to amiodarone pulmonary toxicity - continue prednisone 40mg daily - continue home inhalers DM - diet controlled - hgb a1c 6.2 11/2016 - monitor BSGs, start SSI if needed CKD STAGE III - baseline creat runs in the mid 1's - creat noted to be 1.7 today - continue to monitor, avoid nephrotoxic agents when able HYPOTHYROIDISM - continue levothyroxine GOUT - continue allopurinol DVT PROPHYLAXIS - heparin gtt DISPO - In my clinical judgment this beneficiary meets acute admission criteria, established by [facility], that includes being hospitalized through two midnights. Attending Addendum Pt was seen and examined. Agreed with Lu ASKEW exam, assessment and Plan. Present with chest pain. Follow up cardiac enzymes. INR 1.9 on Coumadin. Starting on heparin drip. Cardiology on board. Continue monitor in tele. Herminia Mclean MD Advanced Directives Existing Living Will: Yes Existing Power of Automotive Internet Sales Manager: Yes VTE Prophylaxis VTE Risk Assessment Done? Y/N: Yes Risk Level: Moderate Given or contraindicated: Warfarin (Coumadin)
[2017-03-03] MEDS: HEPARIN 25,000 UNIT/500ML D5W 500 ML IV PRN (19:43)
[2017-03-03 20:00] VITALS: O2SAT 93
[2017-03-03 20:01] VITALS: BP 115/69; PULSE 117; TEMP 36.4; O2SAT 93
--- NOTE | 2017-03-03 20:08 | CARDIOLOGY CONSULTATION ---
DATE OF CONSULTATION: 03/03/2017 REFERRING PHYSICIAN: Herminia Mclean MD. REASON FOR CONSULTATION: Chest pain, elevated troponin. HISTORY OF PRESENT ILLNESS: Mr. Lemon is a complex 76-year-old male who presented to the Emergency Department with complaints of progressive shortness of breath for the past 3 days with associated weight gain and lower extremity edema. The patient is asymptomatic at rest, however, becomes quickly dyspneic with discomfort between his shoulder blades with minimal exertion. Symptoms began approximately 3 weeks ago; however, worsened over the past 72 hours. In the Emergency Department, the patient noted to be in atrial flutter with a rapid ventricular response of 120 beats per minute. He was treated with intravenous Lopressor, which did not significantly change his heart rate. He denies orthopnea or paroxysmal nocturnal dyspnea. He is unaware of his heart rate, however, a few days ago he noted some tachycardia and was expecting his defibrillator to fire which it did not. Currently, he is resting comfortably. His is present at bedside. He denies cough, fever, chills, or sick contacts. Denies any easy bruising, epistaxis or hemoptysis. His INR was noted to be mildly subtherapeutic on admission. He states he has been compliant with all medications recently. Offers no other complaints at this time. REVIEW OF SYSTEMS: The pertinent positive noted above, a comprehensive 10-system review is otherwise negative. PAST MEDICAL HISTORY: 1. Coronary artery disease status post coronary artery bypass grafting in 1991 with an OG to the LAD, SVG to left circumflex. Cardiac catheterization performed July 2015 demonstrated patent OG to the LAD, patent SVG to diagonal branch and moderate a ischemic cardiomyopathy. His most recent ejection fraction is 40-43%. 2. LV systolic dysfunction with an ischemic cardiomyopathy status post ICD implantation ([facility] March 2016). 3. History of sustained ventricular tachycardia and paroxysmal atrial fibrillation, previously treated with Tikosyn and amiodarone. 4. Amiodarone discontinued secondary to possible progressive pulmonary fibrosis in November 2016. 5. Severe obstructive pulmonary disease on home oxygen. 6. Chronic pulmonary hypertension. 7. Pulmonary fibrosis. 8. Chronic renal insufficiency. 9. Hypertension. 10. Dyslipidemia. 11. Chronic back pain. PAST SURGICAL HISTORY: 1. Coronary artery bypass grafting x2 in 1991. 2. Cardiac catheterization 2015. 3. Lumbar decompressive therapy, December 2014. 4. Hip replacement. FAMILY HISTORY: Negative for premature CAD or sudden cardiac ; however, noncontributory at this time. SOCIAL HISTORY: Former tobacco use with a 13-lfcl-etlf history. He is and lives with his . ALLERGIES: DAYPRO. OUTPATIENT MEDICATIONS: 1. Metoprolol succinate 50 mg daily. 2. Allopurinol 300 mg daily. 3. Aspirin 81 mg daily. 4. Advair Diskus 250/50 b.i.d. 5. Lasix 40 mg daily. 6. Isordil 5 mg b.i.d. 7. Synthroid 125 mcg daily. 8. Singulair 10 mg 1 tab daily. 9. Prednisone 10 mg daily. 10. Zantac 150 mg twice daily. 11. Spiriva 1 cap daily. 12. Coumadin 2.5 mg 5 days per week, 1.25 mg 2 times per week. ECG on admission is atrial flutter with variable conduction and ventricular rate of 118 beats per minute. LABORATORY DATA: Troponin 0.146. Sodium 128, potassium 3.6, chloride 93, CO2 is 27, BUN is 26, creatinine is 1.72, glucose 176. White blood cell count 11.74, hemoglobin is 11.5, platelet count is 283. INR is 1.9 on admission. CHEST X-RAY: No significant pulmonary edema. Bilateral parenchymal infiltrates noted. Telemetry demonstrates atrial flutter with ventricular rate of 120 beats per minute. PHYSICAL EXAMINATION: VITAL SIGNS: Temperature is 36.3 degrees centigrade, pulse 120 beats per minute and regular, respiratory rate 20 breaths per, blood pressure is 119/89, SAO2 is 93% on room air. GENERAL: NAD, awake, alert and oriented x3. HEENT: Mucous membranes are moist. No scleral icterus. Conjunctivae pink. NECK: Supple without JVD or HJR. No carotid bruit. HEART: Regular and tachycardic with a normal S1 and S2. There is no murmur, rub, or gallop appreciated. LUNGS: Demonstrate crackles in the left mid and lower lung granados. No rhonchi or wheeze. ABDOMEN: Soft and nontender. No rebound or guarding. Normal bowel sounds. EXTREMITIES: Demonstrate +1 pretibial edema bilaterally. NEUROLOGIC: Demonstrates no focal motor deficit. FINAL IMPRESSION: 1. A 76-year-old male admitted with progressive dyspnea on exertion and chest discomfort concerning for unstable angina. Symptoms are exacerbated by new onset atrial flutter with rapid ventricular response. Minimal troponin elevation likely shared services representative of demand ischemia in the setting of fixed coronary artery disease. 2. Mild acute decompensated heart failure manifesting with primarily right-sided symptoms of lower extremity edema. 3. History of paroxysmal atrial fibrillation on chronic anticoagulation and subtherapeutic INR noted on admission. 4. History of ventricular tachycardia previously treated with amiodarone. Amiodarone discontinued secondary to pulmonary toxicity. 5. Status post [facility] ICD implantation in March 2016. 6. Pulmonary fibrosis. 7. Chronic obstructive pulmonary disease on home oxygen. 8. History of coronary artery disease, status post coronary artery bypass grafting in 1991 and most recent catheterization in 2015 demonstrating patent bypass grafts. 9. Moderate left ventricular systolic dysfunction per most recent 2D transthoracic echo. PLAN AND RECOMMENDATIONS: The risks, benefits and alternatives to transesophageal echo guided cardioversion were discussed with the patient. He is agreeable. We will likely plan cardioversion tomorrow 03/04/2017. He will be placed n.p.o. except medications after midnight. His Toprol-XL will be transitioned to metoprolol tartrate 25 mg twice daily. We will give 1 dose of intravenous furosemide if blood pressure allows. We will continue to follow input and output and glomerular filtration rate closely. I suspect the patient's symptoms will improve post-cardioversion and confucianism of sinus rhythm. I have ordered an interrogation of his [facility] ICD to determine the onset of his dysrhythmia. Intravenous heparin will be initiated due to subtherapeutic INR. We will continue to follow closely during hospitalization. Thank you for allowing me to take part in the care of your patient.
[2017-03-03] MEDS: FLUTICASONE/SALMETEROL 250/50 (ADVAIR) 14 PUFF/1 INHALER INH SCH (20:52)
[2017-03-03] MEDS: METOPROLOL TARTRATE 25 MG TAB PO SCH (20:53)
[2017-03-03] MEDS: RANITIDINE HCL 150 MG TAB PO SCH (20:53)
[2017-03-04] VITALS (8 sets, daily range): BP systolic 105–137; BP diastolic 55–73; PULSE 65–119; TEMP 36.5–37; O2SAT 90–95
[2017-03-04 01:49] LABS: CKMB 0.8 ng/ml (0.5-3.6)
[2017-03-04 02:02] LABS: PTT PATIENT 69.2 SECONDS (21.0-31.0)
[2017-03-04] MEDS: LEVOTHYROXINE 125 MCG TAB PO SCH (05:55)
[2017-03-04 06:16] LABS: HEMATOCRIT 31.9 % (42-52); HEMOGLOBIN 10.3 g/dL (14.0-18.0); MEAN CELL VOLUME 98.2 fL (80-100); MEAN CORPUSCULAR HEMOGLOBIN 31.7 pg (25-34); MEAN CORPUSCULAR HGB CONC 32.3 g/dl (32-36); MEAN PLATELET VOLUME 9.3 fL (7.4-10.4); NUCLEATED RED BLOOD CELL ABS 0.06 K/uL (0-0); PLATELET COUNT 254 K/uL (130-400); RED CELL DISTRIBUTION WIDTH CV 16.4 % (11.5-14.5); RED CELL DISTRIBUTION WIDTH SD 58.2 fL (36.4-46.3); WHITE BLOOD COUNT 10.63 K/uL (4.8-10.8)
[2017-03-04 06:49] LABS: CALCIUM 8.5 mg/dl (8.5-10.1); CREATININE 1.79 mg/dl (0.60-1.40); POTASSIUM 3.7 mmol/L (3.5-5.1)
[2017-03-04] MEDS ORDERED: PERFLUTREN LIPID MICROSPHERE (DEFINITY) IV ONE (07:53)
[2017-03-04] MEDS: METOPROLOL TARTRATE 25 MG TAB PO SCH (09:28)
[2017-03-04] MEDS: MONTELUKAST SOD 10 MG TAB PO SCH (09:28)
[2017-03-04] MEDS: RANITIDINE HCL 150 MG TAB PO SCH ×2 (09:28→20:28)
[2017-03-04] MEDS: FLUTICASONE/SALMETEROL 250/50 (ADVAIR) 14 PUFF/1 INHALER INH SCH ×2 (09:28→20:29)
[2017-03-04] MEDS: TIOTROPIUM BROMIDE 5 PUFF/90 MCG INH INH SCH (09:28)
[2017-03-04] MEDS: ASPIRIN 81 MG ECTAB PO SCH (09:28)
[2017-03-04] MEDS: ROFLUMILAST 500 MCG TAB PO SCH (09:28)
[2017-03-04] MEDS: CHOLECALCIFEROL 1000 INTER.UNIT TAB PO SCH (09:28)
[2017-03-04] MEDS: ALLOPURINOL 300 MG TAB PO SCH (09:28)
--- NOTE | 2017-03-04 09:41 | ECHOCARDIOGRAM REPORT ---
*NOTICE TO RECEIVING [employer] This information is strictly Confidential and protected under [place] law. [place] law prohibits you from making any further disclosure of this information unless further disclosure is expressly permitted by the written consent of the person to whom it pertains or is authorized by law. A general authorization for the release of medical or other information is not sufficient for this purpose. Hospital accepts no responsibility if the information is made available to any other person, INCLUDING THE PATIENT. Interpretation Summary * Name: XAVIER RODRIGUEZ Study Date: 03/04/2017 07:22 AM BP: 121/65 mmHg * Patient Location: C.2E\S\E205\S\1 HR: 68 * : 1940 (M/d/yyyy) Gender: Male Height: 74 in * Age: 76 yrs Ethnicity: CA Weight: 208 lb * Ordering Physician: Lu Sotelo * Referring Physician: Jey Gee PA-C * Performed By: Rosie Rudolph RDCS * * Reason For Study: Chest pain * BSA: 2.2 m2 * -- Conclusions -- * There is mild concentric left ventricular hypertrophy. * The septal motion is abnormal consistent with right ventricular pacemaker. * The LV wall motion is otherwise normal. * Left ventricular systolic function is mildly reduced. * The qualitative LV ejection fraction =45% * The right ventricle is moderately dilated. * The right ventricular systolic function is reduced as assessed by tricuspid annular plane systolic excursion (TAPSE) (TAPSE <1.6 cm). * There is mild mitral regurgitation. * There is mild to moderate tricuspid regurgitation. * Moderate pulmonary hypertension is present. * The pulmonary artery systolic pressure is calculated to be 63 mm Hg assuming a right atrial pressure of 15 mm Hg. * Compared to the report of the outpatient study at [facility] dated 12/07/16, the RV chamber size, LVEF, and calculated pulmonary pressures are relatively unchanged. Procedure Details * A complete two-dimensional transthoracic echocardiogram was performed (2D, M-mode, Doppler and color flow Doppler). * A contrast injection of Definity was performed to improve assessment of LV function. * Contrast was injected into an intravenous site in the right arm. * One vial of Definity ultrasound contrast was diluted in normal saline to a total volume of 10 ml. A total of '2' ml of solution was administered during imaging. * Lot # [id number] of Definity utilized for procedure. * Expiration date APR 18. * The attending nurse who injected the contrast agent was Lloyd Thomas RN. Left Ventricle * The left ventricle is normal in size. * There is mild concentric left ventricular hypertrophy. * Left ventricular systolic function is mildly reduced. * The qualitative LV ejection fraction =45% * The septal motion is abnormal consistent with right ventricular pacemaker. The LV wall motion is otherwise normal. Right Ventricle * The right ventricle is moderately dilated. * The right ventricular systolic function is reduced as assessed by tricuspid annular plane systolic excursion (TAPSE) (TAPSE <1.6 cm). Atria * The left atrium is mildly dilated. * The right atrium is mildly dilated. * There is no evidence of atrial septal defect, but resolution does not allow assessment for a patent foramen ovale. * An intracardiac device lead is noted in the right atrium. Mitral Valve * The mitral valve is normal. * There is no mitral valve stenosis. * There is mild mitral regurgitation. Tricuspid Valve * The tricuspid valve is normal. * There is no tricuspid stenosis. * There is mild to moderate tricuspid regurgitation. * Moderate pulmonary hypertension is present. The pulmonary artery systolic pressure is calculated to be 63 mm Hg assuming a right atrial pressure of 15 mm Hg. Aortic Valve * The aortic valve is trileaflet. * Aortic stenosis is absent. * Mild aortic regurgitation. Pulmonic Valve * The pulmonary valve is not well seen, but the Doppler examination is normal without significant regurgitation or stenosis. Great Vessels * The aortic root and proximal ascending aorta are normal sized. Pericardium/Pleural * There is no pericardial effusion. Right Ventricle * There is an intracardiac device lead in the right ventricle. Great Vessels * Dilated inferior vena cava with reduced collapsability with sniff indicates an elevated right atrial pressure of 15 mmHg Left Ventricular Diastolic Function * Diastolic dysfunction, Grade II (pseudonormalization pattern). MMode 2D Measurements and Calculations IVSd 1.2 cm LVIDd 4.7 cm LVIDs 3.6 cm LVPWd 1.1 cm IVS/LVPW 1.1 FS 23.2 % EDV(Teich) 101.7 ml ESV(Teich) 54.3 ml EF(Teich) 46.6 % EDV(cubed) 102.9 ml ESV(cubed) 46.5 ml EF(cubed) 54.8 % LV mass(C)d 199.0 grams LV mass(C)dI 90.1 grams/m\S\2 SV(Teich) 47.3 ml SI(Teich) 21.4 ml/m\S\2 SV(cubed) 56.4 ml SI(cubed) 25.5 ml/m\S\2 ACS 2.5 cm LA dimension 3.7 cm LVAd ap4 35.3 cm\S\2 LVLd ap4 8.5 cm EDV(MOD-sp4) 120.8 ml EDV(sp4-el) 124.8 ml LVAs ap4 22.9 cm\S\2 LVLs ap4 6.7 cm ESV(MOD-sp4) 65.8 ml ESV(sp4-el) 66.6 ml EF(MOD-sp4) 45.5 % EF(sp4-el) 46.6 % LVAd ap2 39.7 cm\S\2 LVLd ap2 8.2 cm EDV(MOD-sp2) 158.1 ml EDV(sp2-el) 164.0 ml LVAs ap2 26.0 cm\S\2 LVLs ap2 6.8 cm ESV(MOD-sp2) 85.1 ml ESV(sp2-el) 83.6 ml EF(MOD-sp2) 46.2 % EF(sp2-el) 49.0 % LVLd %diff -3.58 % EDV(MOD-bp) 142.4 ml LVLs %diff 2.0 % ESV(MOD-bp) 75.6 ml EF(MOD-bp) 46.9 % SV(MOD-sp4) 55.0 ml SI(MOD-sp4) 24.9 ml/m\S\2 SV(MOD-sp2) 73.0 ml SI(MOD-sp2) 33.0 ml/m\S\2 SV(MOD-bp) 66.8 ml SI(MOD-bp) 30.2 ml/m\S\2 SV(sp4-el) 58.2 ml SI(sp4-el) 26.3 ml/m\S\2 SV(sp2-el) 80.5 ml SI(sp2-el) 36.4 ml/m\S\2 Doppler Measurements and Calculations MV E max daja 103.8 cm/sec MV A max daja 34.0 cm/sec MV E/A 3.1 MV dec time 0.21 sec Ao V2 max 129.9 cm/sec Ao max PG 6.8 mmHg Ao max PG (full) 4.0 mmHg LV V1 max PG 2.8 mmHg LV V1 max 83.4 cm/sec PA V2 max 78.5 cm/sec PA max PG 2.5 mmHg PA acc slope 563.0 cm/sec\S\2 PA acc time 0.08 sec TR max daja 343.4 cm/sec PA pr(Accel) 42.6 mmHg
--- NOTE | 2017-03-04 10:05 | Clinical Documentation Query ---
CLINICAL DOCUMENTATION QUERY Dr. HOWELL, In your clinical opinion is this patient being managed for: ( ) Type II MO due to demand ischemia ( ) Not Agree ( ) Other explanation of clinical findings (Please Explain) ( ) Unable to determine (Please Define) ( ) Need to Discuss The medical record reflects the following clinical findings, treatment, and risk factors. Clinical Indicators:76 yo male presenting with dyspnea and chest pain radiating to neck x 3 days. Found to have A flutter and acute systolic CHF. Trops 0.146/0.163/0.161, EKG with A flutter and nonspecific ST and T wave abnormality. Treatment:IV lopressor, IV fluids, tele, cardiology consult, ECHO, IV heparin gtt, serial cardiac enzymes, plan for cardioversion, IV metoprolol Risk Factors: age, HTN, A flutter, COPD, CKD, DM, acute systolic CHF Typically, a type 2 myocardial infarction is marked by non-ST elevation, and occurs secondary to cardiac stress due to other causes (i.e., ischemia resulting from a [id number] mismatch), without atherosclerotic plaque rupture, but with myocardial necrosis Please clarify and document your clinical opinion in the progress notes and discharge summary. Terms such as "probable", "suspected", "likely", "questionable", "possible", or "still to be ruled out" are acceptable. IF IN AGREEMENT, YOU MUST DOCUMENT ABOVE DIAGNOSTIC STATEMENT IN DAILY PROGRESS NOTES AND DISCHARGE SUMMARY. This document is not part of the patient's record. Thank You, Eula Prather, RN [phone]
[2017-03-04] MEDS ORDERED: SOTALOL HCL 80 MG TAB PO ONE (10:30)
--- NOTE | 2017-03-04 10:42 | Cardiology Follow-Up ---
Subjective General Date of Service: Mar 04, 2017. Chief Complaint: follow up shortness of breath, shoulder blade pain Pt evaluation today including: conversation w/ patient, physical exam History of Present Illness The patient is a 76 year old male seen in follow up. Patient feeling improved, however, has mostly been in bed with exception of walk to bathroom. Telemetry reveals conversion from atrial flutter with RVR to SR on 03/04/17 at 12: 44 am. EKG am of 03/04/17 reveals SR, atrial pacing, QTc of 4414 ms, one PVC. Allergies Coded Allergies: Adhesives (Verified Adverse Reaction, Intermediate, PULLS SKIN OFF, 03/03/17 ) Oxaprozin (Verified Adverse Reaction, Intermediate, KIDNEYS SHUT DOWN, 03/03) Social History Smoking Status: Former Smoker Hx Tobacco Use In Past Year?: No Hx Alcohol Use - Type And Amou: Yes (wine small glass daily) Hx Substance Use - Type And Am: No Physical Exam Vital Signs Last Vital Signs Documentation Date Time Temp Pulse Resp B/P (MAP) Pulse Ox O2 Delivery O2 Flow Rate FiO2 03/04/17 07:46 37.0 68 18 127/68 (87) 92 03/04/17 04:01 Room Air Physical Exam Constitutional: Level of Distress: NAD Neck: supple Lungs: Auscultation: no wheezing, no rales/crackles, no rhonchi Cardiovascular: Heart Auscultation: RRR, no murmurs Extremities: no edema, no varicosities Neurologic: Gait & Station: pertinent finding (no focal deficits ) Assessment and Plan Assessment and Plan Impression: 76 year old male 1. Presented with atrial flutter (atypical) RVR -3 weeks of episodic shortness of breath, associated exertional pain between shoulder blades -Question if his symptoms correlate with onset of episodic recurrent atrial arrhythmias 2. Chronic coronary heart disease, remote CABG 3. H/o pulmonary fibrosis, RV moderate RV enlargement , RV systolic dysfunction , Moderate pulmonary HTN 4. h/o atrial and ventricular arrhythmias -H/o atrial fibrillation ablation, 2005 [facility], was on Tikosyn for many years pre/ post ablation, then had AICD discharges (from either VT or atrial arrhythmias-exact history unknown) prompting transition from Tikosyn to amiodarone about a year ago ([facility]) -Amiodarone DC'd last December, early January 2017 by pulmonary med due to concerns of amiodarone induced lung toxicity, subsequent improvement in overall respiratory status off of amiodarone 5. CKD, solitary kidney Plan: Plan for interrogation of dual chamber [facility] AICD to determined burden / timing of AF, AFL. DC metoprolol. Unable to resume amiodarone due to concerns of toxicity. Multaq not ideal given risk of heart failure. Tikosyn not effective in past and given renals insufficiency he is at considerable risk of toxicity. Will proceed with transition from metoprolol tartrate to sotalol, start 80 mg BID. INR was 1.9 yesterday and placed on heparin bridge, will repeat, if INR 2 or higher, will DC heparin. Mild / blunt troponin elevation likely due to supply demand mismatch with AFL RVR. No ongoing symptoms to suggest ACS. Laboratory Results Last 24 Hours Test 03/03/17 13:15 03/03/17 19:00 03/03/17 19:10 03/03/17 20:00 White Blood Count 11.74 K/uL Red Blood Count 3.60 M/uL Hemoglobin 11.5 g/dL Hematocrit 35.3 % Mean Corpuscular Volume 98.1 fL Mean Corpuscular Hemoglobin 31.9 pg Mean Corpuscular Hemoglobin Concent 32.6 g/dl Platelet Count 283 K/uL Mean Platelet Volume 9.5 fL Neutrophils (%) (Auto) 82.3 % Lymphocytes (%) (Auto) 8.8 % Monocytes (%) (Auto) 6.4 % Eosinophils (%) (Auto) 1.1 % Basophils (%) (Auto) 0.4 % Neutrophils # (Auto) 9.66 K/uL Lymphocytes # (Auto) 1.03 K/uL Monocytes # (Auto) 0.75 K/uL Eosinophils # (Auto) 0.13 K/uL Basophils # (Auto) 0.05 K/uL RDW Standard Deviation 58.2 fL RDW Coefficient of Variation 16.3 % Immature Granulocyte % (Auto) 1.0 % Immature Granulocyte # (Auto) 0.12 K/uL Nucleated RBC Absolute Count (auto) 0.05 K/uL Nucleated Red Blood Cells % 0.4 % Prothrombin Time 20.1 SECONDS Prothromb Time International Ratio 1.9 Activated Partial Thromboplast Time 37.3 SECONDS Partial Thromboplastin Ratio 1.4 Sodium Level 128 mmol/L Potassium Level 3.6 mmol/L Chloride Level 93 mmol/L Carbon Dioxide Level 27 mmol/L Anion Gap 8.0 mmol/L Blood Urea Nitrogen 26 mg/dl Creatinine 1.72 mg/dl Est Creatinine Clear Calc Drug Dose 41.8 ml/min Estimated GFR () 43.5 Estimated GFR (Non- 37.5 BUN/Creatinine Ratio 15.4 Random Glucose 176 mg/dl Osmolality 281 mOsm/kg Calcium Level 8.7 mg/dl Total Bilirubin 0.8 mg/dl Direct Bilirubin 0.2 mg/dl Aspartate Amino Transf (AST/SGOT) 48 U/L Alanine Aminotransferase (ALT/SGPT) 50 U/L Alkaline Phosphatase 95 U/L Total Creatine Kinase 34 U/L Creatine Kinase MB 1.0 ng/ml 1.0 ng/ml Creatine Kinase MB Ratio 2.9 Troponin I 0.146 ng/ml 0.163 ng/ml Total Protein 7.1 gm/dl Albumin 2.8 gm/dl Lipase 85 U/L Urine Osmolality 199 mOms/kg Test 03/03/17 20:06 03/04/17 01:00 03/04/17 01:08 03/04/17 05:56 Bedside Glucose 168 mg/dl Creatine Kinase MB Ratio Activated Partial Thromboplast Time 69.2 SECONDS Partial Thromboplastin Ratio 2.7 Creatine Kinase MB 0.8 ng/ml Troponin I 0.161 ng/ml White Blood Count 10.63 K/uL Red Blood Count 3.25 M/uL Hemoglobin 10.3 g/dL Hematocrit 31.9 % Mean Corpuscular Volume 98.2 fL Mean Corpuscular Hemoglobin 31.7 pg Mean Corpuscular Hemoglobin Concent 32.3 g/dl RDW Standard Deviation 58.2 fL RDW Coefficient of Variation 16.4 % Platelet Count 254 K/uL Mean Platelet Volume 9.3 fL Nucleated RBC Absolute Count (auto) 0.06 K/uL Nucleated Red Blood Cells % 0.6 % Sodium Level 134 mmol/L Potassium Level 3.7 mmol/L Chloride Level 97 mmol/L Carbon Dioxide Level 31 mmol/L Anion Gap 6.0 mmol/L Blood Urea Nitrogen 30 mg/dl Creatinine 1.79 mg/dl Est Creatinine Clear Calc Drug Dose 40.2 ml/min Estimated GFR () 41.4 Estimated GFR (Non- 35.8 BUN/Creatinine Ratio 16.8 Random Glucose 112 mg/dl Calcium Level 8.5 mg/dl Test 03/04/17 10:12
[2017-03-04 11:32] LABS: INR 1.9 (0.9-1.1)
[2017-03-04] MEDS: HEPARIN 25,000 UNIT/500ML D5W 500 ML IV PRN (13:21)
[2017-03-04] MEDS: WARFARIN SOD 2.5 MG TAB PO SCH (16:29)
--- NOTE | 2017-03-04 16:32 | Cardiology Progress Note ---
Cardiology Progress Note Date of Service Mar 04, 2017. Cardiology Progress Note Device check discussed with [facility]. High atrial rate episodes having been occurring since 02/24.
--- NOTE | 2017-03-04 18:49 | Progress Note ---
Medicine Progress Note Date & Time of Visit: Mar 04, 2017 at 14:15. Subjective Pt was seen and examined Lying in bed with no distress Pt said that he feels fine Pt was converting to NSR around midnight Denies any chest pain, palpitation Objective Last 8 Hrs Date Time Temp Pulse Resp B/P (MAP) Pulse Ox O2 Delivery O2 Flow Rate FiO2 03/04/17 16:00 Room Air 03/04/17 15:36 36.8 65 20 111/68 (82) 93 Room Air 03/04/17 12:00 Room Air 03/04/17 11:42 36.7 67 18 113/55 (74) 92 Physical Exam: General- No acute distress Head- atraumatic Eyes- PERRL, EOMI ENT- oropharynx clear Neck- supple, no JVD Lungs- no wheezing Heart- regular rhythm Abdomen- normal bowel sounds, soft Extremities-no calf tenderness Neuro- alert, oriented x 3; PERRL, EOMI; Skin- warm & dry Laboratory Results: Last 24 Hours Test 03/03/17 19:00 03/03/17 19:10 03/03/17 20:00 03/03/17 20:06 Creatine Kinase MB Ratio Creatine Kinase MB 1.0 ng/ml Troponin I 0.163 ng/ml Urine Osmolality 199 mOms/kg Bedside Glucose 168 mg/dl Test 03/04/17 01:00 03/04/17 01:08 03/04/17 05:56 03/04/17 06:36 Creatine Kinase MB Ratio Activated Partial Thromboplast Time 69.2 SECONDS Partial Thromboplastin Ratio 2.7 Creatine Kinase MB 0.8 ng/ml Troponin I 0.161 ng/ml White Blood Count 10.63 K/uL Red Blood Count 3.25 M/uL Hemoglobin 10.3 g/dL Hematocrit 31.9 % Mean Corpuscular Volume 98.2 fL Mean Corpuscular Hemoglobin 31.7 pg Mean Corpuscular Hemoglobin Concent 32.3 g/dl RDW Standard Deviation 58.2 fL RDW Coefficient of Variation 16.4 % Platelet Count 254 K/uL Mean Platelet Volume 9.3 fL Nucleated RBC Absolute Count (auto) 0.06 K/uL Nucleated Red Blood Cells % 0.6 % Sodium Level 134 mmol/L Potassium Level 3.7 mmol/L Chloride Level 97 mmol/L Carbon Dioxide Level 31 mmol/L Anion Gap 6.0 mmol/L Blood Urea Nitrogen 30 mg/dl Creatinine 1.79 mg/dl Est Creatinine Clear Calc Drug Dose 40.2 ml/min Estimated GFR () 41.4 Estimated GFR (Non- 35.8 BUN/Creatinine Ratio 16.8 Random Glucose 112 mg/dl Calcium Level 8.5 mg/dl Bedside Glucose 111 mg/dl Test 03/04/17 11:02 Prothrombin Time 20.1 SECONDS Prothromb Time International Ratio 1.9 Assessment & Plan CHEST DISCOMFORT ATRIAL FLUTTER WITH RVR Convert back to sinus rhythm around 12:44 am Rate is controlled Starting on Sotalol 80mg BID D/C metoprolol Continue heparin drip and coumadin INR 1.9 Continue monitor in tele Cardiology confirmed with [facility] and device showed High atrial rate episodes having been occurring since 02/24. ECHO * There is mild concentric left ventricular hypertrophy. * The septal motion is abnormal consistent with right ventricular pacemaker. * The LV wall motion is otherwise normal. * Left ventricular systolic function is mildly reduced. * The qualitative LV ejection fraction =45% * The right ventricle is moderately dilated. * The right ventricular systolic function is reduced as assessed by tricuspid annular plane systolic excursion (TAPSE) (TAPSE <1.6 cm). * There is mild mitral regurgitation. * There is mild to moderate tricuspid regurgitation. * Moderate pulmonary hypertension is present. * The pulmonary artery systolic pressure is calculated to be 63 mm Hg assuming a right atrial pressure of 15 mm Hg. * Compared to the report of the outpatient study at [facility] dated 12/07/16, the RV chamber size, LVEF, and calculated pulmonary pressures are relatively unchanged. 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 DM hgb a1c 6.2 11/2016 Continue monitor BMP CKD STAGE III baseline creat runs in the mid 1's creat noted to be 1.7 today continue to monitor avoid nephrotoxic agents when able HYPOTHYROIDISM - continue levothyroxine GOUT - continue allopurinol DVT PROPHYLAXIS - heparin gtt CODE STATUS FULL CODE DISPOSITION Continue monitor in telemetry Current Inpatient Medications: Current Inpatient Medications Medications (Trade) Dose Ordered Sig/Latesha Route Start Time Stop Time Status Last Admin Dose Admin Acetaminophen (Tylenol Tab) 650 mg Q4H PRN PO 03/03/17 15:30 04/02/17 15:29 Nitroglycerin (Nitrostat Tab) 0.4 mg UD PRN SL 03/03/17 15:30 04/02/17 15:29 Allopurinol (Zyloprim Tab) 300 mg QAM PO 03/04/17 09:00 04/03/17 08:59 03/04/17 09:28 300 MG Aspirin (Ecotrin Tab) 81 mg QAM PO 03/04/17 09:00 04/03/17 08:59 03/04/17 09:28 81 MG Salmeterol Xinafoate/ Fluticasone (Advair Diskus 250/50 Inh) 1 puff BID INH 03/03/17 21:00 04/02/17 20:59 03/04/17 09:28 1 PUFF Acetaminophen/ Hydrocodone Bitart ([place] 5/325 Tab) 1 tab Q6H PRN PO 03/03/17 18:15 03/17/17 18:14 Levothyroxine Sodium (Synthroid Tab) 125 mcg DAILYBB PO 03/04/17 06:00 04/03/17 05:59 03/04/17 05:55 125 MCG Montelukast Sodium (Singulair Tab) 10 mg QAM PO 03/04/17 09:00 04/03/17 08:59 03/04/17 09:28 10 MG Prednisone (PredniSONE TAB) 10 mg DAILY PO 03/04/17 09:00 04/03/17 08:59 03/04/17 09:28 10 MG Ranitidine HCl (zANTac TAB) 150 mg BID PO 03/03/17 21:00 04/02/17 20:59 03/04/17 09:28 150 MG Roflumilast (Daliresp Tab) 500 mcg QAM PO 03/04/17 09:00 04/03/17 08:59 03/04/17 09:28 500 MCG Tiotropium [place] (Spiriva Handihaler Inhaler) 1 puff QAM INH 03/04/17 09:00 04/03/17 08:59 03/04/17 09:28 1 PUFF Cholecalciferol (Vitamin D Tab) 2,000 inter.unit QAM PO 03/04/17 09:00 04/03/17 08:59 03/04/17 09:28 2,000 INTER.UNIT Heparin Sodium/ Dextrose 500 ml @ 31 mls/hr Q16H8M PRN IV 03/03/17 19:30 04/02/17 19:29 03/04/17 13:21 31 MLS/HR Sotalol HCl (Betapace Tab) 80 mg BID PO 03/04/17 21:00 04/03/17 20:59 Warfarin Sodium (Coumadin Tab) 2.5 mg DAILY@16 PO 03/04/17 16:00 04/03/17 15:59 03/04/17 16:29 2.5 MG
[2017-03-04] MEDS: SOTALOL HCL 80 MG TAB PO SCH (20:29)
[2017-03-05 03:38] VITALS: BP 110/60; PULSE 67; TEMP 37; O2SAT 91
[2017-03-05] MEDS: LEVOTHYROXINE 125 MCG TAB PO SCH (06:23)
[2017-03-05 07:14] LABS: HEMATOCRIT 31.1 % (42-52); MEAN CELL VOLUME 98.4 fL (80-100); MEAN CORPUSCULAR HEMOGLOBIN 31.6 pg (25-34); MEAN CORPUSCULAR HGB CONC 32.2 g/dl (32-36); MEAN PLATELET VOLUME 9.3 fL (7.4-10.4); NUCLEATED RED BLOOD CELL ABS 0.13 K/uL (0-0); PLATELET COUNT 241 K/uL (130-400); RED CELL DISTRIBUTION WIDTH CV 16.3 % (11.5-14.5); RED CELL DISTRIBUTION WIDTH SD 58.5 fL (36.4-46.3); WHITE BLOOD COUNT 11.33 K/uL (4.8-10.8)
[2017-03-05 07:42] LABS: CALCIUM 8.6 mg/dl (8.5-10.1); CREATININE 1.81 mg/dl (0.60-1.40); POTASSIUM 3.6 mmol/L (3.5-5.1)
[2017-03-05 07:45] VITALS: BP 113/63; PULSE 65; TEMP 36.8; O2SAT 88
[2017-03-05 07:45] LABS: INR 1.8 (0.9-1.1)
[2017-03-05] MEDS: ASPIRIN 81 MG ECTAB PO SCH (07:55)
[2017-03-05] MEDS: FLUTICASONE/SALMETEROL 250/50 (ADVAIR) 14 PUFF/1 INHALER INH SCH ×2 (07:55→20:34)
[2017-03-05] MEDS: RANITIDINE HCL 150 MG TAB PO SCH ×2 (07:55→20:34)
[2017-03-05] MEDS: CHOLECALCIFEROL 1000 INTER.UNIT TAB PO SCH (07:55)
[2017-03-05] MEDS: SOTALOL HCL 80 MG TAB PO SCH ×2 (07:55→19:49)
[2017-03-05] MEDS: ROFLUMILAST 500 MCG TAB PO SCH (07:55)
[2017-03-05] MEDS: MONTELUKAST SOD 10 MG TAB PO SCH (07:55)
[2017-03-05] MEDS: ALLOPURINOL 300 MG TAB PO SCH (07:55)
[2017-03-05] MEDS: TIOTROPIUM BROMIDE 5 PUFF/90 MCG INH INH SCH (07:56)
[2017-03-05 09:07] LABS: PTT PATIENT 68.8 SECONDS (21.0-31.0)
--- NOTE | 2017-03-05 10:00 | Cardiology Follow-Up ---
Subjective General Date of Service: Mar 05, 2017. Chief Complaint: follow up shortness of breath, shoulder blade pain Pt evaluation today including: conversation w/ patient, physical exam, chart review, lab review, review of studies, conversation w/ performance consultant, review of inpatient medication list History of Present Illness The patient is a 76 year old male seen in follow-up.. Complains of dyspnea on exertion and intermittent posterior neck pain. Remains in sinus rhythm on telemetry. Atrial paced rhythm with prolonged QT on ECG this a.m. He has received 3 doses of 80 mg sotalol. No sustained dysrhythmias. Denies chest pain. Lower extremity edema has improved. Allergies Coded Allergies: Adhesives (Verified Adverse Reaction, Intermediate, PULLS SKIN OFF, 03/03/17 ) Oxaprozin (Verified Adverse Reaction, Intermediate, KIDNEYS SHUT DOWN, 03/03) Social History Smoking Status: Former Smoker Hx Tobacco Use In Past Year?: No Hx Alcohol Use - Type And Amou: Yes (wine small glass daily) Hx Substance Use - Type And Am: No Review of Systems Respiratory: + shortness of breath, + dyspnea on exertion, No cough, No dyspnea at rest, No hemoptysis Cardiac: No chest pain, No orthopnea, No PND, No edema, No claudication, No palpitations Physical Exam Vital Signs Last Vital Signs Documentation Date Time Temp Pulse Resp B/P (MAP) Pulse Ox O2 Delivery O2 Flow Rate FiO2 03/05/17 07:45 36.8 65 20 113/63 (80) 88 Room Air Physical Exam Constitutional: Level of Distress: NAD Head: normocephalic, atraumatic Neck: supple Lungs: Auscultation: no wheezing, no rales/crackles, no rhonchi Cardiovascular: Heart Auscultation: RRR, no murmurs Extremities: no edema, no varicosities Neurologic: Gait & Station: pertinent finding (no focal deficits ) Assessment and Plan Assessment and Plan FINAL IMPRESSION: 1. Atypical atrial flutter with rapid ventricular response and spontaneous conversion to normal sinus rhythm. -Patient has received 3 doses of 80 mg sotalol with prolonged QTC on ECG this a.m. -INR remains subtherapeutic 2. Mild acute decompensated heart failure manifesting with primarily right-sided symptoms of lower extremity edema. - clinically improved - Repeat echocardiogram demonstrates mild left ventricular dysfunction with moderate right ventricular dilatation and dysfunction and evidence of moderate pulmonary hypertension. 3. History of paroxysmal atrial fibrillation s/p PVI ablation on chronic anticoagulation and subtherapeutic INR. 4. History of ventricular tachycardia previously treated with amiodarone. Amiodarone discontinued secondary to pulmonary toxicity. 5. Status post [facility] ICD implantation in March 2016. - Interrogation suggests atrial flutter began 02/24/17 6. Pulmonary fibrosis. 7. Chronic obstructive pulmonary disease on home oxygen. 8. History of coronary artery disease, status post coronary artery bypass grafting in 1991 and most recent catheterization in 2015 demonstrating patent bypass grafts. PLAN AND RECOMMENDATIONS: Sotalol will be placed on hold with a repeat ECG this a.m. Continue telemetry monitoring. Intravenous heparin will be continued at this time and his INR remains subtherapeutic. Coumadin will be dosed for goal INR of 2.0-3.0. Diuretics currently on hold. Repeat BMP in a.m. Repeat ECG in a.m. 03/06/17. Laboratory Results Last 24 Hours Test 03/04/17 11:02 03/05/17 06:18 03/05/17 06:50 Prothrombin Time 20.1 SECONDS 18.9 SECONDS Prothromb Time International Ratio 1.9 1.8 Bedside Glucose 115 mg/dl White Blood Count 11.33 K/uL Red Blood Count 3.16 M/uL Hemoglobin 10.0 g/dL Hematocrit 31.1 % Mean Corpuscular Volume 98.4 fL Mean Corpuscular Hemoglobin 31.6 pg Mean Corpuscular Hemoglobin Concent 32.2 g/dl RDW Standard Deviation 58.5 fL RDW Coefficient of Variation 16.3 % Platelet Count 241 K/uL Mean Platelet Volume 9.3 fL Nucleated RBC Absolute Count (auto) 0.13 K/uL Nucleated Red Blood Cells % 1.2 % Activated Partial Thromboplast Time 68.8 SECONDS Partial Thromboplastin Ratio 2.6 Sodium Level 133 mmol/L Potassium Level 3.6 mmol/L Chloride Level 96 mmol/L Carbon Dioxide Level 29 mmol/L Anion Gap 8.0 mmol/L Blood Urea Nitrogen 30 mg/dl Creatinine 1.81 mg/dl Est Creatinine Clear Calc Drug Dose 39.8 ml/min Estimated GFR () 40.9 Estimated GFR (Non- 35.3 BUN/Creatinine Ratio 16.7 Random Glucose 112 mg/dl Calcium Level 8.6 mg/dl
[2017-03-05 11:09] VITALS: BP 120/66; PULSE 67; TEMP 36.6; O2SAT 93
[2017-03-05] MEDS: HEPARIN 25,000 UNIT/500ML D5W 500 ML IV PRN (12:02)
[2017-03-05 15:26] VITALS: BP 124/73; PULSE 65; TEMP 36.6; O2SAT 90
[2017-03-05] MEDS: WARFARIN SOD 2.5 MG TAB PO SCH (15:55)
[2017-03-05 20:22] VITALS: BP 130/71; PULSE 65; TEMP 36.5; O2SAT 91
--- NOTE | 2017-03-05 20:23 | Progress Note ---
Medicine Progress Note Date & Time of Visit: Mar 05, 2017 at 20:18. Subjective Pt was seen and examined Lying in bed with no distress Pt said that he feels fine Denies any chest pain, palpitation and sob Objective Last 8 Hrs Date Time Temp Pulse Resp B/P (MAP) Pulse Ox O2 Delivery O2 Flow Rate FiO2 03/05/17 16:00 Room Air 03/05/17 15:26 36.6 65 16 124/73 (90) 90 Room Air Physical Exam: General- No acute distress Head- atraumatic Eyes- PERRL, EOMI ENT- oropharynx clear Neck- supple, no JVD Lungs- no wheezing Heart- regular rhythm Abdomen- normal bowel sounds, soft Extremities-no calf tenderness Neuro- alert, oriented x 3; PERRL, EOMI; Skin- warm & dry Laboratory Results: Last 24 Hours Test 03/05/17 06:18 03/05/17 06:50 03/05/17 11:12 03/05/17 16:24 Bedside Glucose 115 mg/dl 159 mg/dl 221 mg/dl White Blood Count 11.33 K/uL Red Blood Count 3.16 M/uL Hemoglobin 10.0 g/dL Hematocrit 31.1 % Mean Corpuscular Volume 98.4 fL Mean Corpuscular Hemoglobin 31.6 pg Mean Corpuscular Hemoglobin Concent 32.2 g/dl RDW Standard Deviation 58.5 fL RDW Coefficient of Variation 16.3 % Platelet Count 241 K/uL Mean Platelet Volume 9.3 fL Nucleated RBC Absolute Count (auto) 0.13 K/uL Nucleated Red Blood Cells % 1.2 % Prothrombin Time 18.9 SECONDS Prothromb Time International Ratio 1.8 Activated Partial Thromboplast Time 68.8 SECONDS Partial Thromboplastin Ratio 2.6 Sodium Level 133 mmol/L Potassium Level 3.6 mmol/L Chloride Level 96 mmol/L Carbon Dioxide Level 29 mmol/L Anion Gap 8.0 mmol/L Blood Urea Nitrogen 30 mg/dl Creatinine 1.81 mg/dl Est Creatinine Clear Calc Drug Dose 39.8 ml/min Estimated GFR () 40.9 Estimated GFR (Non- 35.3 BUN/Creatinine Ratio 16.7 Random Glucose 112 mg/dl Calcium Level 8.6 mg/dl Assessment & Plan CHEST DISCOMFORT ATRIAL FLUTTER WITH RVR Convert back to sinus rhythm around 12:44 am Rate is controlled On Sotalol 80mg BID D/C metoprolol Continue heparin drip and Coumadin until INR therapeutic INR 1.8 tele monitor showed prolonged QT Sotalol has been held by cardiology Sotalol will be decreased to 40mg daily starting tomorrow Continue monitor in tele Cardiology confirmed with [facility] and device showed High atrial rate episodes having been occurring since 02/24. ECHO * There is mild concentric left ventricular hypertrophy. * The septal motion is abnormal consistent with right ventricular pacemaker. * The LV wall motion is otherwise normal. * Left ventricular systolic function is mildly reduced. * The qualitative LV ejection fraction =45% * The right ventricle is moderately dilated. * The right ventricular systolic function is reduced as assessed by tricuspid annular plane systolic excursion (TAPSE) (TAPSE <1.6 cm). * There is mild mitral regurgitation. * There is mild to moderate tricuspid regurgitation. * Moderate pulmonary hypertension is present. * The pulmonary artery systolic pressure is calculated to be 63 mm Hg assuming a right atrial pressure of 15 mm Hg. * Compared to the report of the outpatient study at [facility] dated 12/07/16, the RV chamber size, LVEF, and calculated pulmonary pressures are relatively unchanged. 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 DM hgb a1c 6.2 11/2016 Continue monitor BMP CKD STAGE III baseline creat runs in the mid 1's creat noted to be 1.7 today continue to monitor avoid nephrotoxic agents when able HYPOTHYROIDISM - continue levothyroxine GOUT - continue allopurinol DVT PROPHYLAXIS - heparin gtt and Coumadin INR 2.5 CODE STATUS FULL CODE DISPOSITION Continue monitor in telemetry Current Inpatient Medications: Current Inpatient Medications Medications (Trade) Dose Ordered Sig/Latesha Route Start Time Stop Time Status Last Admin Dose Admin Acetaminophen (Tylenol Tab) 650 mg Q4H PRN PO 03/03/17 15:30 04/02/17 15:29 Nitroglycerin (Nitrostat Tab) 0.4 mg UD PRN SL 03/03/17 15:30 04/02/17 15:29 Allopurinol (Zyloprim Tab) 300 mg QAM PO 03/04/17 09:00 04/03/17 08:59 03/05/17 07:55 300 MG Aspirin (Ecotrin Tab) 81 mg QAM PO 03/04/17 09:00 04/03/17 08:59 03/05/17 07:55 81 MG Salmeterol Xinafoate/ Fluticasone (Advair Diskus 250/50 Inh) 1 puff BID INH 03/03/17 21:00 04/02/17 20:59 03/05/17 07:55 1 PUFF Acetaminophen/ Hydrocodone Bitart ([place] 5/325 Tab) 1 tab Q6H PRN PO 03/03/17 18:15 03/17/17 18:14 Levothyroxine Sodium (Synthroid Tab) 125 mcg DAILYBB PO 03/04/17 06:00 04/03/17 05:59 03/05/17 06:23 125 MCG Montelukast Sodium (Singulair Tab) 10 mg QAM PO 03/04/17 09:00 04/03/17 08:59 03/05/17 07:55 10 MG Prednisone (PredniSONE TAB) 10 mg DAILY PO 03/04/17 09:00 04/03/17 08:59 03/05/17 07:55 10 MG Ranitidine HCl (zANTac TAB) 150 mg BID PO 03/03/17 21:00 04/02/17 20:59 03/05/17 07:55 150 MG Roflumilast (Daliresp Tab) 500 mcg QAM PO 03/04/17 09:00 04/03/17 08:59 03/05/17 07:55 500 MCG Tiotropium [place] (Spiriva Handihaler Inhaler) 1 puff QAM INH 03/04/17 09:00 04/03/17 08:59 03/05/17 07:56 1 PUFF Cholecalciferol (Vitamin D Tab) 2,000 inter.unit QAM PO 03/04/17 09:00 04/03/17 08:59 03/05/17 07:55 2,000 INTER.UNIT Heparin Sodium/ Dextrose 500 ml @ 31 mls/hr Q16H8M PRN IV 03/03/17 19:30 04/02/17 19:29 03/05/17 12:02 31 MLS/HR Warfarin Sodium (Coumadin Tab) 2.5 mg DAILY@16 PO 03/04/17 16:00 04/03/17 15:59 03/05/17 15:55 2.5 MG Sotalol HCl (Betapace Tab) 40 mg DAILY@1900 PO 03/05/17 19:00 03/11/17 18:59 03/05/17 19:49 40 MG Sotalol HCl (Betapace Tab) 80 mg DAILY PO 03/06/17 09:00 04/05/17 08:59
[2017-03-05 23:35] VITALS: BP 100/56; PULSE 68; TEMP 36.7; O2SAT 91
[2017-03-06] MEDS: HEPARIN 25,000 UNIT/500ML D5W 500 ML IV PRN (01:37)
[2017-03-06 04:06] VITALS: BP 129/73; PULSE 65; TEMP 36.7; O2SAT 90
[2017-03-06] MEDS: LEVOTHYROXINE 125 MCG TAB PO SCH (06:07)
[2017-03-06 06:20] LABS: INR 2.1 (0.9-1.1)
[2017-03-06 06:23] LABS: PTT PATIENT 124.2 SECONDS (21.0-31.0)
[2017-03-06 06:29] LABS: CALCIUM 8.5 mg/dl (8.5-10.1); CREATININE 1.45 mg/dl (0.60-1.40); POTASSIUM 3.6 mmol/L (3.5-5.1)
[2017-03-06 07:14] VITALS: BP 117/69; PULSE 68; TEMP 36.7; O2SAT 98
[2017-03-06 07:17] LABS: PTT PATIENT 102.7 SECONDS (21.0-31.0)
[2017-03-06] MEDS: TIOTROPIUM BROMIDE 5 PUFF/90 MCG INH INH SCH (07:32)
[2017-03-06] MEDS: FLUTICASONE/SALMETEROL 250/50 (ADVAIR) 14 PUFF/1 INHALER INH SCH ×2 (07:32→20:36)
[2017-03-06] MEDS: MONTELUKAST SOD 10 MG TAB PO SCH (07:33)
[2017-03-06] MEDS: ASPIRIN 81 MG ECTAB PO SCH (07:33)
[2017-03-06] MEDS: ALLOPURINOL 300 MG TAB PO SCH (07:33)
[2017-03-06] MEDS: SOTALOL HCL 80 MG TAB PO SCH ×2 (07:33→18:34)
[2017-03-06] MEDS: CHOLECALCIFEROL 1000 INTER.UNIT TAB PO SCH (07:34)
[2017-03-06] MEDS: ROFLUMILAST 500 MCG TAB PO SCH (07:34)
[2017-03-06] MEDS: RANITIDINE HCL 150 MG TAB PO SCH ×2 (08:25→20:36)
--- NOTE | 2017-03-06 09:02 | Cardiology Follow-Up ---
Subjective General Date of Service: Mar 06, 2017. Chief Complaint: follow up shortness of breath, shoulder blade pain Pt evaluation today including: conversation w/ patient, physical exam, chart review, lab review, review of studies, review of inpatient medication list History of Present Illness The patient is a 76 year old male seen in follow-up. Telemetry demonstrates atrial paced rhythm as well as brief episodes of proximal atrial fibrillation with controlled ventricular response. Patient denies chest pain or palpitations. He has been ambulating in his room without significant symptoms. Previously reported significant posterior cervical discomfort has resolved. Denies orthopnea or PND. Repeat ECG this morning demonstrates normal QTC. Allergies Coded Allergies: Adhesives (Verified Adverse Reaction, Intermediate, PULLS SKIN OFF, 03/03/17 ) Oxaprozin (Verified Adverse Reaction, Intermediate, KIDNEYS SHUT DOWN, 03/03) Social History Smoking Status: Former Smoker Hx Tobacco Use In Past Year?: No Hx Alcohol Use - Type And Amou: Yes (wine small glass daily) Hx Substance Use - Type And Am: No Review of Systems Respiratory: No cough, No sputum, No wheezing, No shortness of breath, No dyspnea on exertion, No dyspnea at rest, No hemoptysis Cardiac: No chest pain, No orthopnea, No PND, No edema, No claudication, No palpitations Physical Exam Vital Signs Last Vital Signs Documentation Date Time Temp Pulse Resp B/P (MAP) Pulse Ox O2 Delivery O2 Flow Rate FiO2 03/06/17 08:00 Room Air 03/06/17 07:14 36.7 68 20 117/69 (85) 98 2.0 Physical Exam Constitutional: Level of Distress: NAD Head: normocephalic, atraumatic Neck: supple Lungs: Auscultation: no wheezing, no rales/crackles, no rhonchi Cardiovascular: Heart Auscultation: RRR, normal S1, normal S2, no murmurs Extremities: no edema, no varicosities Neurologic: Gait & Station: pertinent finding (no focal deficits ) Cranial Nerves: grossly intact Assessment and Plan Assessment and Plan FINAL IMPRESSION: 1. Atypical atrial flutter with rapid ventricular response and spontaneous conversion to normal sinus rhythm. -Patient received 3 doses of 80 mg sotalol with prolonged QTC on ECG 2016. -Dose reduced to 80 mg in the morning, 40 mg in the evening. -QTc WNL today -INR therapeutic today 2. Mild acute decompensated heart failure manifesting with primarily right-sided symptoms of lower extremity edema. - clinically improved - Repeat echocardiogram demonstrates mild left ventricular dysfunction with moderate right ventricular dilatation and dysfunction and evidence of moderate pulmonary hypertension. 3. History of paroxysmal atrial fibrillation s/p PVI ablation on chronic anticoagulation. 4. History of ventricular tachycardia previously treated with amiodarone. Amiodarone discontinued secondary to pulmonary toxicity. 5. Status post [facility] ICD implantation in March 2016. - Interrogation suggests atrial flutter began 02/24/17 6. Pulmonary fibrosis. 7. Chronic obstructive pulmonary disease on home oxygen. 8. History of coronary artery disease, status post coronary artery bypass grafting in 1991 and most recent catheterization in 2015 demonstrating patent bypass grafts. PLAN AND RECOMMENDATIONS: Continue sotalol 80 mg in the morning, 40 mg in the evening. Continue telemetry monitoring. Discontinue intravenous heparin today Continue Coumadin for goal INR of 2.0-3.0. Restart Lasix 40 mg daily Repeat BMP in a.m. Repeat ECG in a.m. 03/07/17. Laboratory Results Last 24 Hours Test 03/05/17 11:12 03/05/17 16:24 03/05/17 20:21 03/06/17 05:31 Bedside Glucose 159 mg/dl 221 mg/dl 143 mg/dl Prothrombin Time 21.4 SECONDS Prothromb Time International Ratio 2.1 Activated Partial Thromboplast Time 124.2 SECONDS Partial Thromboplastin Ratio 4.8 Sodium Level 134 mmol/L Potassium Level 3.6 mmol/L Chloride Level 99 mmol/L Carbon Dioxide Level 30 mmol/L Anion Gap 5.0 mmol/L Blood Urea Nitrogen 26 mg/dl Creatinine 1.45 mg/dl Est Creatinine Clear Calc Drug Dose 49.6 ml/min Estimated GFR () 53.5 Estimated GFR (Non- 46.1 BUN/Creatinine Ratio 17.6 Random Glucose 102 mg/dl Calcium Level 8.5 mg/dl Test 03/06/17 06:27 03/06/17 06:32 Bedside Glucose 108 mg/dl Activated Partial Thromboplast Time 102.7 SECONDS Partial Thromboplastin Ratio 4.0
[2017-03-06] MEDS: FUROSEMIDE 40 MG TAB PO SCH (10:04)
--- NOTE | 2017-03-06 10:13 | Progress Note ---
Medicine Progress Note Date & Time of Visit: Mar 06, 2017 at 09:55. Subjective Pt was seen and examined Sitting in chair with no distress Pt said that he feels fine he said that that he had a good night Denies any chest pain, palpitation, dizziness and SOB Objective Last 8 Hrs Date Time Temp Pulse Resp B/P (MAP) Pulse Ox O2 Delivery O2 Flow Rate FiO2 03/06/17 08:00 Room Air 03/06/17 07:14 36.7 68 20 117/69 (85) 98 Nasal Cannula 2.0 03/06/17 04:06 36.7 65 20 129/73 (91) 90 Room Air 03/06/17 04:00 Room Air Physical Exam: General- No acute distress Head- atraumatic Eyes- PERRL, EOMI ENT- oropharynx clear Neck- supple, no JVD Lungs- no wheezing Heart- regular rhythm Abdomen- normal bowel sounds, soft Extremities-no calf tenderness, Trace edema Neuro- alert, oriented x 3; PERRL, EOMI; Skin- warm & dry Laboratory Results: Last 24 Hours Test 03/05/17 11:12 03/05/17 16:24 03/05/17 20:21 03/06/17 05:31 Bedside Glucose 159 mg/dl 221 mg/dl 143 mg/dl Prothrombin Time 21.4 SECONDS Prothromb Time International Ratio 2.1 Activated Partial Thromboplast Time 124.2 SECONDS Partial Thromboplastin Ratio 4.8 Sodium Level 134 mmol/L Potassium Level 3.6 mmol/L Chloride Level 99 mmol/L Carbon Dioxide Level 30 mmol/L Anion Gap 5.0 mmol/L Blood Urea Nitrogen 26 mg/dl Creatinine 1.45 mg/dl Est Creatinine Clear Calc Drug Dose 49.6 ml/min Estimated GFR () 53.5 Estimated GFR (Non- 46.1 BUN/Creatinine Ratio 17.6 Random Glucose 102 mg/dl Calcium Level 8.5 mg/dl Test 03/06/17 06:27 03/06/17 06:32 Bedside Glucose 108 mg/dl Activated Partial Thromboplast Time 102.7 SECONDS Partial Thromboplastin Ratio 4.0 Assessment & Plan CHEST DISCOMFORT ATRIAL FLUTTER WITH RVR Convert back to sinus rhythm around 12:44 am Rate is controlled On Sotalol 80mg BID D/C metoprolol INR 2.1 Will D/C heparin drip today Continue sotatol 80mg in am and 40mg at night as per cardiology Continue monitor in tele Cardiology confirmed with [facility] and device showed High atrial rate episodes having been occurring since 02/24. Check EKG in am Monitor PT/INR ECHO * There is mild concentric left ventricular hypertrophy. * The septal motion is abnormal consistent with right ventricular pacemaker. * The LV wall motion is otherwise normal. * Left ventricular systolic function is mildly reduced. * The qualitative LV ejection fraction =45% * The right ventricle is moderately dilated. * The right ventricular systolic function is reduced as assessed by tricuspid annular plane systolic excursion (TAPSE) (TAPSE <1.6 cm). * There is mild mitral regurgitation. * There is mild to moderate tricuspid regurgitation. * Moderate pulmonary hypertension is present. * The pulmonary artery systolic pressure is calculated to be 63 mm Hg assuming a right atrial pressure of 15 mm Hg. * Compared to the report of the outpatient study at [facility] dated 12/07/16, the RV chamber size, LVEF, and calculated pulmonary pressures are relatively unchanged. 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 - Continue steroid B/L INFILTRATE ON CXR No signs of infection WBC slightly elevated mostly due to steroid Afebrile Consider doxycycline for 5 days Repeat CXR in am since his lasix resume, if CXR is cleared, will d/c doxy DM hgb a1c 6.2 11/2016 Continue monitor BMP CKD STAGE III baseline creat runs in the mid 1's creat noted to be 1.4, back to baseline Resume lasix Avoid nephrotoxic agents Continue monitor BMP HYPOTHYROIDISM Continue levothyroxine GOUT Continue allopurinol DVT PROPHYLAXIS Continue Coumadin INR 2.1 CODE STATUS FULL CODE DISPOSITION Continue monitor in telemetry Current Inpatient Medications: Current Inpatient Medications Medications (Trade) Dose Ordered Sig/Latesha Route Start Time Stop Time Status Last Admin Dose Admin Acetaminophen (Tylenol Tab) 650 mg Q4H PRN PO 03/03/17 15:30 04/02/17 15:29 Nitroglycerin (Nitrostat Tab) 0.4 mg UD PRN SL 03/03/17 15:30 2//18 15:29 Allopurinol (Zyloprim Tab) 300 mg QAM PO 03/04/17 09:00 04/03/17 08:59 03/06/17 07:33 300 MG Aspirin (Ecotrin Tab) 81 mg QAM PO 03/04/17 09:00 04/03/17 08:59 03/06/17 07:33 81 MG Salmeterol Xinafoate/ Fluticasone (Advair Diskus 250/50 Inh) 1 puff BID INH 03/03/17 21:00 04/02/17 20:59 03/06/17 07:32 1 PUFF Acetaminophen/ Hydrocodone Bitart (Millis 5/325 Tab) 1 tab Q6H PRN PO 03/03/17 18:15 03/17/17 18:14 Levothyroxine Sodium (Synthroid Tab) 125 mcg DAILYBB PO 03/04/17 06:00 04/03/17 05:59 03/06/17 06:07 125 MCG Montelukast Sodium (Singulair Tab) 10 mg QAM PO 03/04/17 09:00 04/03/17 08:59 03/06/17 07:33 10 MG Prednisone (PredniSONE TAB) 10 mg DAILY PO 03/04/17 09:00 04/03/17 08:59 03/06/17 07:34 10 MG Ranitidine HCl (zANTac TAB) 150 mg BID PO 03/03/17 21:00 04/02/17 20:59 03/06/17 08:25 150 MG Roflumilast (Daliresp Tab) 500 mcg QAM PO 03/04/17 09:00 04/03/17 08:59 03/06/17 07:34 500 MCG Tiotropium Peterson (Spiriva Handihaler Inhaler) 1 puff QAM INH 03/04/17 09:00 04/03/17 08:59 03/06/17 07:32 1 PUFF Cholecalciferol (Vitamin D Tab) 2,000 inter.unit QAM PO 03/04/17 09:00 04/03/17 08:59 03/06/17 07:34 2,000 INTER.UNIT Warfarin Sodium (Coumadin Tab) 2.5 mg DAILY@16 PO 03/04/17 16:00 04/03/17 15:59 03/05/17 15:55 2.5 MG Sotalol HCl (Betapace Tab) 40 mg DAILY@1900 PO 03/05/17 19:00 03/11/17 18:59 03/05/17 19:49 40 MG Sotalol HCl (Betapace Tab) 80 mg DAILY PO 03/06/17 09:00 04/05/17 08:59 03/06/17 07:33 80 MG Furosemide (Lasix Tab) 40 mg QAM PO 03/06/17 09:00 04/05/17 08:59
[2017-03-06] MEDS ORDERED: DOXYCYCLINE HYCLATE 100 MG CAP PO ONE (10:45)
[2017-03-06 12:40] VITALS: BP 108/64; PULSE 66; TEMP 36.4; O2SAT 98
[2017-03-06] MEDS ORDERED: NURSING VERBAL MED ORDER ONE (13:00)
[2017-03-06 15:48] VITALS: BP 136/73; PULSE 66; TEMP 36.4; O2SAT 99
[2017-03-06] MEDS: WARFARIN SOD 2.5 MG TAB PO SCH (16:36)
[2017-03-06 19:47] VITALS: BP 140/65; PULSE 65; TEMP 36.5; O2SAT 98
[2017-03-06] MEDS: DOXYCYCLINE HYCLATE 100 MG CAP PO SCH (20:36)
[2017-03-06 23:35] VITALS: BP 116/69; PULSE 65; TEMP 36.6; O2SAT 95
[2017-03-07 03:38] VITALS: BP_SYST 133; BP_SYST 93; BP_DIAS 53; BP_DIAS 78; PULSE 50; PULSE 65; TEMP 36.8; TEMP 37; O2SAT 97; O2SAT 99
[2017-03-07 06:07] LABS: HEMATOCRIT 30.9 % (42-52); HEMOGLOBIN 9.7 g/dL (14.0-18.0); MEAN CELL VOLUME 99.4 fL (80-100); MEAN CORPUSCULAR HEMOGLOBIN 31.2 pg (25-34); MEAN CORPUSCULAR HGB CONC 31.4 g/dl (32-36); MEAN PLATELET VOLUME 9.3 fL (7.4-10.4); PLATELET COUNT 260 K/uL (130-400); RED CELL DISTRIBUTION WIDTH CV 16.3 % (11.5-14.5); RED CELL DISTRIBUTION WIDTH SD 58.3 fL (36.4-46.3); WHITE BLOOD COUNT 9.22 K/uL (4.8-10.8)
[2017-03-07 06:15] LABS: INR 2.3 (0.9-1.1)
[2017-03-07] MEDS: LEVOTHYROXINE 125 MCG TAB PO SCH (06:31)
[2017-03-07 06:58] VITALS: BP 134/72; PULSE 65; TEMP 36.6; O2SAT 99
[2017-03-07] MEDS: FLUTICASONE/SALMETEROL 250/50 (ADVAIR) 14 PUFF/1 INHALER INH SCH (08:06)
[2017-03-07] MEDS: TIOTROPIUM BROMIDE 5 PUFF/90 MCG INH INH SCH (08:07)
[2017-03-07] MEDS: FUROSEMIDE 40 MG TAB PO SCH (08:08)
[2017-03-07] MEDS: ROFLUMILAST 500 MCG TAB PO SCH (08:08)
[2017-03-07] MEDS: ASPIRIN 81 MG ECTAB PO SCH (08:08)
[2017-03-07] MEDS: DOXYCYCLINE HYCLATE 100 MG CAP PO SCH (08:08)
[2017-03-07] MEDS: MONTELUKAST SOD 10 MG TAB PO SCH (08:08)
[2017-03-07] MEDS: CHOLECALCIFEROL 1000 INTER.UNIT TAB PO SCH (08:08)
[2017-03-07] MEDS: ALLOPURINOL 300 MG TAB PO SCH (08:08)
[2017-03-07] MEDS: SOTALOL HCL 80 MG TAB PO SCH (08:08)
[2017-03-07] MEDS: RANITIDINE HCL 150 MG TAB PO SCH (08:08)
[2017-03-07 08:45] LABS: CALCIUM 8.3 mg/dl (8.5-10.1); CREATININE 1.47 mg/dl (0.60-1.40); POTASSIUM 3.9 mmol/L (3.5-5.1)
--- NOTE | 2017-03-07 09:47 | Cardiology Follow-Up ---
Subjective General Date of Service: Mar 07, 2017. Chief Complaint: PAF. SOB Pt evaluation today including: conversation w/ patient, physical exam, chart review, lab review, review of studies, review of inpatient medication list History of Present Illness Dyspneic when cleaning up this morning. Patient feels that the Sotalol may be affecting his breathing and SPO2 No chest pain. No palpitations. No abdominal bloating, orthopnea, PND, or increased peripheral edema. Telemetry demonstrates an atrial paced rhythm with intermitting ventricular pacing and one three beat VPC run. EKG this morning reveals an atrial paced rhythm with prolonged AV conduction, nonspecific intra-ventricular conduction delay, stable ST-T wave abnormalities inferior and laterally. QT/QTc 454/472 ms. Creatinine Clearance by Cockcroft-Gault is 54.64 mL/min (76 year old male with creatinine of 1.47, actual weight of 91.8 kg) Allergies Coded Allergies: Adhesives (Verified Adverse Reaction, Intermediate, PULLS SKIN OFF, 03/03/17 ) Oxaprozin (Verified Adverse Reaction, Intermediate, KIDNEYS SHUT DOWN, 03/03) Social History Smoking Status: Former Smoker Hx Tobacco Use In Past Year?: No Hx Alcohol Use - Type And Amou: Yes (wine small glass daily) Hx Substance Use - Type And Am: No Review of Systems Respiratory: + dyspnea on exertion, No cough, No sputum, No wheezing, No shortness of breath, No dyspnea at rest, No hemoptysis Cardiac: + edema, No chest pain, No orthopnea, No PND, No claudication, No palpitations Physical Exam Vital Signs Last Vital Signs Documentation Date Time Temp Pulse Resp B/P (MAP) Pulse Ox O2 Delivery O2 Flow Rate FiO2 03/07/17 08:00 Room Air 03/07/17 06:58 36.6 65 20 134/72 (92) 99 2.5 Physical Exam Constitutional: Level of Distress: NAD, chronically ill Psychiatric: Mental Status: active & alert Orientation: to time, to place, to person Memory: recent memory normal, remote memory normal Head: normocephalic, atraumatic Neck: supple, pertinent finding (Normal JVP) Lungs: Respiratory effort: no dyspnea Auscultation: no wheezing, no rhonchi, deminished air movement, decreased breath sounds, rales/crackles on the left, rales/crackles on the right Cardiovascular: Heart Auscultation: RRR, normal S1, normal S2, no murmurs Peripheral Pulses: Dorsalis Pedis Pulse: decreased on the left, decreased on the right Extremities: no varicosities, no clubbing, edema (Minimal right lower extremity edema) Neurologic: Gait & Station: pertinent finding (no focal deficits ) Cranial Nerves: grossly intact Assessment and Plan Assessment and Plan Symptomatic atypical atrial flutter with rapid ventricular response status post spontaneous conversion back to sinus rhythm. Sotalol initiated in the AM of 01/02. QTc today is 472 ms having received 7 doses of sotalol. INR therapeutic, 2.3 Compensated congestive heart failure signs and symptoms Ischemic cardiomyopathy. EF 45% via TTE this admission. History of CAD status post CABG in 1991. Catheterization in 2015 demonstrating patent bypass grafts. Status post [facility] pacemaker ICD implantation in March 2016. History of ventricular tachycardia previously treated with amiodarone. Amiodarone discontinued secondary to pulmonary toxicity. History of paroxysmal atrial fibrillation s/p PVI ablation on chronic anticoagulation. Pulmonary fibrosis. Chronic obstructive pulmonary disease on home oxygen. RECOMMENDATIONS: PA and lateral chest x-ray today Continue as prescribed, sotalol 80 mg in the AM and 40 mg in the PM. Note: Toprol XL discontinued this admission Increase activity as tolerated. Outpatient cardiology follow-up in [place] next week Cardiology Attending Physician: Patient seen and examined at the bedside. No recurrent atrial fibrillation overnight. Reports dyspnea on exertion which has improved since admission. Denies chest discomfort. Renal function stable. Anxious for discharge today. PE: VSS. Gen: NAD, AAO x 3. Heart: Regular, Normal S1S2. Lung: clear B/L, No rales, rhonchi, or wheeze. Ext: Trace bilateral pretibial edema with stasis changes. A/P: Agree with above PAC history, physical exam, assessment and plan. Patient will continue sotalol with close follow-up later this week. Consider reduction of sotalol to 80 mg once daily pending tolerance. (Previously intolerant to carvedilol). Other cardiovascular medications will be continued as previously ordered. All questions were answered to his satisfaction. Robert Martinez DO, [facility] Laboratory Results Last 24 Hours Test 03/06/17 11:29 03/06/17 16:31 03/06/17 19:47 03/07/17 05:40 Bedside Glucose 145 mg/dl 177 mg/dl 174 mg/dl White Blood Count 9.22 K/uL Red Blood Count 3.11 M/uL Hemoglobin 9.7 g/dL Hematocrit 30.9 % Mean Corpuscular Volume 99.4 fL Mean Corpuscular Hemoglobin 31.2 pg Mean Corpuscular Hemoglobin Concent 31.4 g/dl RDW Standard Deviation 58.3 fL RDW Coefficient of Variation 16.3 % Platelet Count 260 K/uL Mean Platelet Volume 9.3 fL Prothrombin Time 23.4 SECONDS Prothromb Time International Ratio 2.3 Sodium Level 139 mmol/L Potassium Level 3.9 mmol/L Chloride Level 102 mmol/L Carbon Dioxide Level 32 mmol/L Anion Gap 5.0 mmol/L Blood Urea Nitrogen 24 mg/dl Creatinine 1.47 mg/dl Est Creatinine Clear Calc Drug Dose 48.9 ml/min Estimated GFR () 52.6 Estimated GFR (Non- 45.4 BUN/Creatinine Ratio 16.3 Random Glucose 102 mg/dl Calcium Level 8.3 mg/dl Test 03/07/17 06:19 Bedside Glucose 114 mg/dl
--- NOTE | 2017-03-07 10:19 | DIAGNOSTIC IMAGING REPORT ---
CHEST 2 VIEWS ROUTINE CLINICAL HISTORY: r/o pneumonia dyspnea COMPARISON STUDY: 03/03/2017 FINDINGS: Slight improvement in aeration both lung bases. Parenchymal fibrotic and/or infiltrative change peripheral aspect right upper lobe unchanged. Moderate stable cardiomegaly. Median sternotomy. Permanent bipolar cardiac pacemaker/defibrillator in good position. IMPRESSION: Unchanging bibasilar parenchymal infiltrates versus fibrotic change. Unchanging peripheral right upper lobe infiltrative and/or fibrotic change. Moderate stable cardiomegaly. The above report was generated using voice recognition software. It may contain grammatical, syntax or spelling errors. Electronically signed by: Jye Patel M.D. 03/07/2017 10:18 AM Dictated Date/Time: 03/07/2017 10:17 AM
[2017-03-07 11:20] VITALS: BP 116/65; PULSE 65; TEMP 36.8; O2SAT 99
--- NOTE | 2017-03-07 11:40 | Progress Note ---
Internal Med Progress Note Date of Service: Mar 07, 2017. Provider Documentation: SUBJECTIVE: The patient was seen and examined Minimal SOB at rest Minimal desaturation this AM Ambulating well without much problem OBJECTIVE: Vital Signs-as noted below Exam: General-Minimal distress at rest Eyes-Normal ENT-normal Neck-supple Lungs-[id number] breath sound bilaterally Fine crackles at the bases Heart-Regular,no murmur appreciated Abdomen-Benign,no masses,bowel sound present Extremities-Trace edema bilaterally Neuro-AAOx3 Lab data as noted below. ASSESSMENT & PLAN: ATRIAL FLUTTER WITH RVR Convert back to sinus rhythm around 12:44 am on the day of admission Was On Sotalol 80mg BID,Changed to 80 in AM and 40 in PM D/C metoprolol Cardiology confirmed with [facility] and device showed High atrial rate episodes having been occurring since 02/24. ECHO * There is mild concentric left ventricular hypertrophy. * The septal motion is abnormal consistent with right ventricular pacemaker. * The LV wall motion is otherwise normal. * Left ventricular systolic function is mildly reduced. * The qualitative LV ejection fraction =45% * The right ventricle is moderately dilated. * The right ventricular systolic function is reduced as assessed by tricuspid annular plane systolic excursion (TAPSE) (TAPSE <1.6 cm). * There is mild mitral regurgitation. * There is mild to moderate tricuspid regurgitation. * Moderate pulmonary hypertension is present. * The pulmonary artery systolic pressure is calculated to be 63 mm Hg assuming a right atrial pressure of 15 mm Hg. * Compared to the report of the outpatient study at [facility] dated 12/07/16, the RV chamber size, LVEF, and calculated pulmonary pressures are relatively unchanged. 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 - Continue steroid as advised Has chronic bibasilar changes in CXR and that remained unchanged as of 03/07/17 Has been on Doxy -will continue for 7 days in total HYPERVOLEMIC HYPONATREMIA Na on admission was 128 Improved to 134 today Sodium is normalized -139 DM hgb a1c 6.2 11/2016 Continue monitor BMP CKD STAGE III baseline creat runs in the mid 1's creat noted to be 1.4, back to baseline Resume Lasix Avoid nephrotoxic agents Creatinine is at his Baseline HYPOTHYROIDISM Continue levothyroxine GOUT Continue allopurinol DVT PROPHYLAXIS Continue Coumadin INR 2.3 CODE STATUS FULL CODE DISPOSITION Continue monitor in telemetry Discharge home today Vital Signs: Date Time Temp Pulse Resp B/P (MAP) Pulse Ox O2 Delivery O2 Flow Rate FiO2 03/07/17 08:00 Room Air 03/07/17 06:58 36.6 65 20 134/72 (92) 99 Nasal Cannula 2.5 03/07/17 04:00 Nasal Cannula 2.5 03/07/17 03:38 36.8 65 18 133/78 (96) 97 Nasal Cannula 2.5 03/06/17 23:59 Nasal Cannula 2.5 03/06/17 23:35 36.6 65 18 116/69 (85) 95 Nasal Cannula 2.5 03/06/17 20:00 Nasal Cannula 2.5 03/06/17 19:47 36.5 65 16 140/65 (90) 98 Room Air 03/06/17 16:00 Room Air 03/06/17 15:48 36.4 66 16 136/73 (94) 99 Room Air 03/06/17 12:40 36.4 66 20 108/64 (79) 98 Nasal Cannula 2.0 03/06/17 12:00 Room Air Lab Results: Results Past 24 Hours Test 03/06/17 16:31 03/06/17 19:47 03/07/17 05:40 03/07/17 06:19 Range/Units Bedside Glucose 177 174 114 70-99 mg/dl White Blood Count 9.22 4.8-10.8 K/uL Red Blood Count 3.11 4.7-6.1 M/uL Hemoglobin 9.7 14.0-18.0 g/dL Hematocrit 30.9 42-52 % Mean Corpuscular Volume 99.4 80-100 fL Mean Corpuscular Hemoglobin 31.2 25-34 pg Mean Corpuscular Hemoglobin Concent 31.4 32-36 g/dl RDW Standard Deviation 58.3 36.4-46.3 fL RDW Coefficient of Variation 16.3 11.5-14.5 % Platelet Count 260 130-400 K/uL Mean Platelet Volume 9.3 7.4-10.4 fL Prothrombin Time 23.4 9.0-12.0 SECONDS Prothromb Time International Ratio 2.3 0.9-1.1 Sodium Level 139 136-145 mmol/L Potassium Level 3.9 3.5-5.1 mmol/L Chloride Level 102 98-107 mmol/L Carbon Dioxide Level 32 21-32 mmol/L Anion Gap 5.0 3-11 mmol/L Blood Urea Nitrogen 24 7-18 mg/dl Creatinine 1.47 0.60-1.40 mg/dl Est Creatinine Clear Calc Drug Dose 48.9 ml/min Estimated GFR () 52.6 Estimated GFR (Non- 45.4 BUN/Creatinine Ratio 16.3 10-20 Random Glucose 102 70-99 mg/dl Calcium Level 8.3 8.5-10.1 mg/dl
[2017-03-07] MEDS ORDERED: DXY100 PO (13:00)
[2017-03-07] MEDS ORDERED: BTP80 PO ×2 (13:00)
--- NOTE | 2017-03-07 13:02 | Discharge Instructions ---
Discharge Instructions Date of Service Mar 07, 2017. Admission Reason for Admission: Unstable Angina Discharge Discharge Diagnosis / Problem: Atrial Flutter ,COPD Discharge Goals Goal(s): Prevent Disease Progression Activity Recommendations Activity Limitations: resume your previous activity . Instructions / Follow-Up Instructions / Follow-Up Dr Mtz on 03/11/17 at 1:00PM ,Cardiology on 03/17/17 at 10:45 AM .Coagulation notified Current Hospital Diet Patient's current hospital diet: AHA Diet (Heart Healthy), Diabetes Type 2 Diet , Low Sodium Diet (2gm Na) Discharge Diet Recommended Diet: AHA Diet (Heart Healthy), Diabetes Type 2 Diet Fluid Restriction: 1500 ml (6 cups) Pending Studies Studies pending at discharge: no Medical Emergencies . Who to Call and When: Medical Emergencies: If at any time you feel your situation is an emergency, please call 911 immediately. . Non-Emergent Contact Non-Emergency issues call your: Primary Care Provider . Past History Medical & Surgical History: (1) Atrial fibrillation (2) Ischemic cardiomyopathy (3) Hypothyroidism (4) Gout (5) COPD (chronic obstructive pulmonary disease) (6) DM (diabetes mellitus) (7) HTN (hypertension) (8) Presence of combination internal cardiac defibrillator (ICD) and pacemaker (9) History of cataract surgery (10) History of left hip replacement (11) History of right hip replacement (12) H/O cardiac radiofrequency ablation (13) History of back surgery (14) S/P CABG x 2 . "Provider Documentation" section prepared by Anatoliy Tejada. . VTE Core Measure Inpt VTE Proph given/why not?: Warfarin (Coumadin)
[2017-03-07 13:42] VITALS: BP 116/65; PULSE 65; TEMP 36.8; O2SAT 99
--- NOTE | 2017-03-08 08:02 | Discharge Summary ---
Discharge Summary Date of Service Mar 08, 2017. Discharge Summary Admission Date: Mar 03, 2017 at 15:21 Discharge Date: Mar 07, 2017 Discharge Disposition: Home Principal Diagnosis: Atrial Flutter ,COPD Secondary Diagnoses/Problems: Please see H&P and Hospital progress note Consultations: Cardiology Medication Reconciliation New Medications: Doxycycline Hyclate (Doxycycline Hyclate) 100 Mg Cap 100 MG PO BID for 3 Days, #6 CAP Sotalol HCl (Sotalol HCl) 80 Mg Tab 80 MG PO DAILY for 30 Days, #30 TAB At ~ 9AM Sotalol HCl (Sotalol HCl) 80 Mg Tab 40 MG PO DAILY@1900 for 30 Days, #30 TAB Continued Medications: Albuterol Sulfate (Proair Respiclick) 108 Mcg/Act Aer 2 PUFF INH QID PRN for Shortness of Breath Allopurinol (Zyloprim) 300 Mg Tab 300 MG PO QAM, TAB Aspirin (Aspirin Chewable) 81 Mg Chew 81 MG PO QAM Cholecalciferol (Vitamin D) 2,000 Unit Tab 1 TAB PO DAILY Fluticasone Prop/Salmeterol (Advair Diskus 250/50 60 Dose) 1 Ea Aerp 1 PUFF INH BID, INHALER Furosemide (Lasix) 40 Mg Tab 40 MG PO QAM, TAB Hydrocodone/Acetaminophen 5MG/325MG (Phelan 5MG/325MG) Tab 1 TABLET PO Q6H PRN for Pain, TAB Isosorbide Dinitrate (Isordil) 5 Mg Tab 5 MG PO BID Levothyroxine Sodium (Synthroid) 125 Mcg Tab 125 MCG PO DAILY, TAB Montelukast Sodium (Montelukast Sodium) 10 Mg Tab 1 TAB PO QAM for 90 Days, #90 TAB 3 Refills Prednisone Tab (Prednisone) 10 Mg Tab 10 MG PO DAILY, TAB 10mg po daily for 12 days. Ranitidine Hcl (Zantac) 150 Mg Tab 150 MG PO BID, TAB Roflumilast (Daliresp) 500 Mcg Tab 1 TAB PO QAM for 30 Days, #30 TAB 5 Refills Tiotropium Bascom (Spiriva Handihaler) 30 Puff/540 Mcg Aerp 1 CAP INH QAM, INHALER Warfarin Sod (Jantoven) 2.5 Mg Tab 2.5 MG PO 5XWK, TAB tuesday, tuesday, , tuesday, tuesday Warfarin Sod (Coumadin) 2.5 Mg Tab 1.25 MG PO 2XWK, TAB tuesday, tuesday Discontinued Medications: Metoprolol Succinate (Metoprolol Succinate ER) 50 Mg Tabcr 50 MG PO DAILY Admission Information HPI (per Admitting provider): 76 year old male who presents to the ED with chest pain and shortness of breath. Patient reports his symptoms have been present for the past 3 weeks. He reports chest pain with exertion that resolves with rest after 5-10 minutes. He describes the pain as located in the mid chest and describes it as a pressure. It radiated into between the shoulder blades and up in the back of his neck. Over the past few days he has been developing these symptoms with minimal exertion. He reports associated lightheadedness but denies nausea and diaphoresis. He has had an 8lb weight gain in past 3 days. He has had increasing lower extremity edema and abdominal distention. He denies abdominal pain, vomiting, or diarrhea. No fevers or chills. He denies urinary symptoms. Patient was seen by his PCP and referred to the ED for further evaluation. In the ED, patient is tachycardic in the 110s. Labs show mildly elevated trop at 0.146 and hyponatremia at 128. EKG shows atrial flutter. He was given metoprolol 5mg IV. Patient reports he feels fine at rest. Past Medical/Surgical History Medical Problems: (1) Atrial fibrillation Status: Chronic (2) CAD (coronary artery disease) Status: Chronic (3) CKD (chronic kidney disease), stage III Status: Chronic (4) COPD (chronic obstructive pulmonary disease) Status: Chronic (5) DM (diabetes mellitus) Status: Chronic (6) Dyslipidemia Status: Chronic (7) Gout Status: Chronic (8) HTN (hypertension) Status: Chronic (9) Hypothyroidism Status: Chronic (10) Ischemic cardiomyopathy Permanent Comment: echo 11/2016 - EF 40-43% Status: Chronic (11) Presence of combination internal cardiac defibrillator (ICD) and pacemaker Status: Chronic (12) V tach Status: Chronic Surgical Problems: (1) H/O cardiac radiofrequency ablation Status: Chronic (2) History of back surgery Status: Chronic (3) History of cataract surgery Status: Chronic (4) History of left hip replacement Status: Chronic (5) History of right hip replacement Status: Chronic (6) S/P CABG x 2 Status: Chronic Family History non contributory due to patient's age Social History Smoking Status: Former Smoker Alcohol Use: none Marital Status: Immunizations History of Influenza Vaccine: Yes Influenza Vaccine Date: Nov 29, 2016 History of Tetanus Vaccine?: Yes Tetanus Immunization Date: Apr 10, 2007 History of Pneumococcal: Yes Pneumococcal Date: May 30, 2014 Multi-Drug Resistant Organisms History of MDRO: No Allergies Coded Allergies: Adhesives (Verified Adverse Reaction, Intermediate, PULLS SKIN OFF, 03/03/17 ) Oxaprozin (Verified Adverse Reaction, Intermediate, KIDNEYS SHUT DOWN, 03/03) Home Medications Scheduled Allopurinol (Zyloprim), 300 MG PO QAM Aspirin (Aspirin Chewable), 81 MG PO QAM Cholecalciferol (Vitamin D), 1 TAB PO DAILY Fluticasone Prop/Salmeterol (Advair Diskus 250/50 60 Dose), 1 PUFF INH BID Furosemide (Lasix), 60 MG PO QAM Isosorbide Dinitrate (Isordil), 5 MG PO BID Levothyroxine Sodium (Synthroid), 125 MCG PO DAILY Metoprolol Succinate (Metoprolol Succinate ER), 50 MG PO DAILY Montelukast Sodium (Montelukast Sodium), 1 TAB PO QAM Prednisone Tab (Prednisone), 10 MG PO DAILY Ranitidine Hcl (Zantac), 150 MG PO BID Roflumilast (Daliresp), 1 TAB PO QAM Tiotropium Bascom (Spiriva Handihaler), 1 CAP INH QAM Warfarin Sod (Jantoven), 2.5 MG PO 5XWK Warfarin Sod (Coumadin), 1.25 MG PO 2XWK Scheduled PRN Albuterol Sulfate (Proair Respiclick), 2 PUFF INH QID PRN for Shortness of Breath Hydrocodone/Acetaminophen 5MG/325MG (Phelan 5MG/325MG), 1 TABLET PO Q6H PRN for Pain Review of Systems ROS per HPI, all other systems reviewed and negative Physical Ex - H&P Physical Exam Vital Signs Date Time Temp Pulse Resp B/P (MAP) Pulse Ox O2 Delivery O2 Flow Rate FiO2 03/03/17 17:52 92 Room Air 03/03/17 17:46 36.6 119 20 89/68 03/03/17 16:36 120 20 119/89 93 Room Air 03/03/17 15:25 121 20 117/84 96 Room Air 03/03/17 15:25 122 117/84 03/03/17 13:39 98 Room Air 03/03/17 13:37 96 Room Air 03/03/17 13:37 119 20 108/77 95 Room Air 03/03/17 13:17 121 03/03/17 12:56 36.3 113 20 78/42 94 Room Air 86/46 General Appearance: WD/WN, no apparent distress Head: normocephalic, atraumatic Eyes: normal inspection, EOMI, sclerae normal ENT: hearing grossly normal, + pertinent finding (mucous membranes moist) Neck: supple, no JVD, trachea midline Respiratory/Chest: lungs clear, normal breath sounds, no respiratory distress Cardiovascular: normal peripheral pulses, + tachycardia (regular rhythm), + pertinent finding (+3 pitting edema BLLE) Abdomen/GI: normal bowel sounds, non tender, soft, no organomegaly, + distended Extremities/Musculoskelatal: normal inspection, no calf tenderness, normal capillary refill Neurologic/Psych: no motor/sensory deficits, alert, normal mood/affect, oriented x 3 Skin: normal color, warm/dry Diagnostics - H&P Diagnostics Laboratory Results Results Past 24 Hours Test 03/03/17 13:15 Range/Units White Blood Count 11.74 4.8-10.8 K/uL Red Blood Count 3.60 4.7-6.1 M/uL Hemoglobin 11.5 14.0-18.0 g/dL Hematocrit 35.3 42-52 % Mean Corpuscular Volume 98.1 80-100 fL Mean Corpuscular Hemoglobin 31.9 25-34 pg Mean Corpuscular Hemoglobin Concent 32.6 32-36 g/dl Platelet Count 283 130-400 K/uL Mean Platelet Volume 9.5 7.4-10.4 fL Neutrophils (%) (Auto) 82.3 % Lymphocytes (%) (Auto) 8.8 % Monocytes (%) (Auto) 6.4 % Eosinophils (%) (Auto) 1.1 % Basophils (%) (Auto) 0.4 % Neutrophils # (Auto) 9.66 1.4-6.5 K/uL Lymphocytes # (Auto) 1.03 1.2-3.4 K/uL Monocytes # (Auto) 0.75 0.11-0.59 K/uL Eosinophils # (Auto) 0.13 0-0.5 K/uL Basophils # (Auto) 0.05 0-0.2 K/uL RDW Standard Deviation 58.2 36.4-46.3 fL RDW Coefficient of Variation 16.3 11.5-14.5 % Immature Granulocyte % (Auto) 1.0 % Immature Granulocyte # (Auto) 0.12 0.00-0.02 K/uL Nucleated RBC Absolute Count (auto) 0.05 0-0 K/uL Nucleated Red Blood Cells % 0.4 % Prothrombin Time 20.1 9.0-12.0 SECONDS Prothromb Time International Ratio 1.9 0.9-1.1 Activated Partial Thromboplast Time 37.3 21.0-31.0 SECONDS Partial Thromboplastin Ratio 1.4 Sodium Level 128 136-145 mmol/L Potassium Level 3.6 3.5-5.1 mmol/L Chloride Level 93 98-107 mmol/L Carbon Dioxide Level 27 21-32 mmol/L Anion Gap 8.0 3-11 mmol/L Blood Urea Nitrogen 26 7-18 mg/dl Creatinine 1.72 0.60-1.40 mg/dl Est Creatinine Clear Calc Drug Dose 41.8 ml/min Estimated GFR () 43.5 Estimated GFR (Non- 37.5 BUN/Creatinine Ratio 15.4 10-20 Random Glucose 176 70-99 mg/dl Osmolality 281 280-300 mOsm/kg Calcium Level 8.7 8.5-10.1 mg/dl Total Bilirubin 0.8 0.2-1 mg/dl Direct Bilirubin 0.2 0-0.2 mg/dl Aspartate Amino Transf (AST/SGOT) 48 15-37 U/L Alanine Aminotransferase (ALT/SGPT) 50 12-78 U/L Alkaline Phosphatase 95 45-117 U/L Total Creatine Kinase 34 39-308 U/L Creatine Kinase MB 1.0 0.5-3.6 ng/ml Creatine Kinase MB Ratio 2.9 0-3.0 Troponin I 0.146 0-0.045 ng/ml Total Protein 7.1 6.4-8.2 gm/dl Albumin 2.8 3.4-5.0 gm/dl Lipase 85 73-393 U/L Diagnostic Radiology CXR IMPRESSION: Bilateral parenchymal infiltrates. Postoperative changes as noted. Impression - H&P Impression Assessment and Plan CHEST PAIN, SHORTNESS OF BREATH ATRIAL FLUTTER ACUTE ON CHRONIC SYSTOLIC CHF, ISCHEMIC CARDIOMYOPATHY HX V-TACH, ATRIAL FIBRILLATION S/P AICD/PACEMAKER HX CAD - admit to tele - patient presenting with exertional chest pain and shortness of breath x 3 weeks; in the ED, found to have uncontrolled atrial flutter - case discussed with Dr. Martinez - patient on Coumadin for hx of a. fib, INR 1.9; will hold Coumadin a place on heparin gtt - NPO after midnight for MÓNICA and cardioversion - stop Toprol XL and place on metoprolol tartrate 25mg BID - echo 11/2016 - EF 40-43% - will diuresis with Lasix 40mg IV x 1 tonight; reassess in AM - hold isosorbide due to borderline BPs and diuresising - was managed on amiodarone however stopped due to pulmonary toxicity - serial cardiac enzymes - continue ASA - patient intolerant to statins - pacer interrogation - CXR shows BL parenchymal infiltrates however patient without cough, sputum production or fever; does have a mild leukocytosis however is on chronic steroids HYPERVOLEMIC HYPONATREMIA - should improved with diuresis - follow Na+ levels - urine and serum osmo COPD - no signs of acute exacerbation - 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 Advanced Directives Existing Living Will: Yes Existing Power of Drilling Field Specialist: Yes VTE Prophylaxis VTE Risk Assessment Done? Y/N: Yes Risk Level: Moderate Given or contraindicated: Warfarin (Coumadin) Physical Exam (per Admitting): General Appearance: WD/WN, no apparent distress Head: normocephalic, atraumatic Eyes: normal inspection, EOMI, sclerae normal ENT: hearing grossly normal, + pertinent finding (mucous membranes moist) Neck: supple, no JVD, trachea midline Respiratory/Chest: lungs clear, normal breath sounds, no respiratory distress Cardiovascular: normal peripheral pulses, + tachycardia (regular rhythm), + pertinent finding (+3 pitting edema BLLE) Abdomen/GI: normal bowel sounds, non tender, soft, no organomegaly, + distended Extremities/Musculoskelatal: normal inspection, no calf tenderness, normal capillary refill Neurologic/Psych: no motor/sensory deficits, alert, normal mood/affect, oriented x 3 Skin: normal color, warm/dry Hospital Course ATRIAL FLUTTER WITH RVR Convert back to sinus rhythm around 12:44 am on the day of admission Was On Sotalol 80mg BID,Changed to 80 in AM and 40 in PM D/C metoprolol Cardiology confirmed with [facility] and device showed High atrial rate episodes having been occurring since 02/24. ECHO * There is mild concentric left ventricular hypertrophy. * The septal motion is abnormal consistent with right ventricular pacemaker. * The LV wall motion is otherwise normal. * Left ventricular systolic function is mildly reduced. * The qualitative LV ejection fraction =45% * The right ventricle is moderately dilated. * The right ventricular systolic function is reduced as assessed by tricuspid annular plane systolic excursion (TAPSE) (TAPSE <1.6 cm). * There is mild mitral regurgitation. * There is mild to moderate tricuspid regurgitation. * Moderate pulmonary hypertension is present. * The pulmonary artery systolic pressure is calculated to be 63 mm Hg assuming a right atrial pressure of 15 mm Hg. * Compared to the report of the outpatient study at [facility] dated 12/07/16, the RV chamber size, LVEF, and calculated pulmonary pressures are relatively unchanged. 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 - Continue steroid as advised Has chronic bibasilar changes in CXR and that remained unchanged as of 03/07/17 Has been on Doxy -will continue for 7 days in total HYPERVOLEMIC HYPONATREMIA Na on admission was 128 Improved to 134 today Sodium is normalized -139 DM hgb a1c 6.2 11/2016 Continue monitor BMP CKD STAGE III baseline creat runs in the mid 1's creat noted to be 1.4, back to baseline Resume Lasix Avoid nephrotoxic agents Creatinine is at his Baseline HYPOTHYROIDISM Continue levothyroxine GOUT Continue allopurinol DVT PROPHYLAXIS Continue Coumadin INR 2.3 CODE STATUS FULL CODE DISPOSITION Continue monitor in telemetry Discharge home today Total time spent on discharge = 35 minutes This includes examination of the patient, discharge planning, medication reconciliation, and communication with other providers. Discharge Instructions Date of Service Mar 07, 2017. Admission Reason for Admission: Unstable Angina Discharge Discharge Diagnosis / Problem: Atrial Flutter ,COPD Discharge Goals Goal(s): Prevent Disease Progression Activity Recommendations Activity Limitations: resume your previous activity . Instructions / Follow-Up Instructions / Follow-Up Dr Mtz on 03/11/17 at 1:00PM ,Cardiology on 03/17/17 at 10:45 AM .Coagulation notified Current Hospital Diet Patient's current hospital diet: AHA Diet (Heart Healthy), Diabetes Type 2 Diet , Low Sodium Diet (2gm Na) Discharge Diet Recommended Diet: AHA Diet (Heart Healthy), Diabetes Type 2 Diet Fluid Restriction: 1500 ml (6 cups) Pending Studies Studies pending at discharge: no Medical Emergencies . Who to Call and When: Medical Emergencies: If at any time you feel your situation is an emergency, please call 911 immediately. . Non-Emergent Contact Non-Emergency issues call your: Primary Care Provider . Past History Medical & Surgical History: (1) Atrial fibrillation (2) Ischemic cardiomyopathy (3) Hypothyroidism (4) Gout (5) COPD (chronic obstructive pulmonary disease) (6) DM (diabetes mellitus) (7) HTN (hypertension) (8) Presence of combination internal cardiac defibrillator (ICD) and pacemaker (9) History of cataract surgery (10) History of left hip replacement (11) History of right hip replacement (12) H/O cardiac radiofrequency ablation (13) History of back surgery (14) S/P CABG x 2 . "Provider Documentation" section prepared by Anatoliy Tejada. . VTE Core Measure Inpt VTE Proph given/why not?: Warfarin (Coumadin) <Electronically signed by Anatoliy Tejada M.D.> Additional Copies To Ayan Mtz M.D.
== END 2017-03-07 14:05 | disposition home or self-care (01) | DRG 291 ==
LOC: C.EDB 12:53 → C.2E 15:21 → ENRESERV 16:25
PROVIDERS: ADMIT Internal Medicine; ATTEND Internal Medicine
DX: I13.0 Hypertensive heart and chronic kidney disease with heart failure and stage 1 through stage 4 chronic kidney disease, or unspecified chronic kidney disease (principal); I50.23 Acute on chronic systolic (congestive) heart failure; I48.92 Unspecified atrial flutter; E87.1 Hypo-osmolality and hyponatremia; Q60.0 Renal agenesis, unilateral; I25.110 Atherosclerotic heart disease of native coronary artery with unstable angina pectoris; I25.5 Ischemic cardiomyopathy; I48.0 Paroxysmal atrial fibrillation; J44.9 Chronic obstructive pulmonary disease, unspecified; Z99.81 Dependence on supplemental oxygen; J84.10 Pulmonary fibrosis, unspecified; I27.20 Pulmonary hypertension, unspecified; E11.22 Type 2 diabetes mellitus with diabetic chronic kidney disease; N18.3 Chronic kidney disease, stage 3 (moderate); E03.9 Hypothyroidism, unspecified; M10.9 Gout, unspecified; Z95.810 Presence of automatic (implantable) cardiac defibrillator; Z95.1 Presence of aortocoronary bypass graft; Z86.79 Personal history of other diseases of the circulatory system; Z87.891 Personal history of nicotine dependence; Z79.01 Long term (current) use of anticoagulants; Z79.52 Long term (current) use of systemic steroids; Z79.82 Long term (current) use of aspirin; Z79.899 Other long term (current) drug therapy

== ENCOUNTER 2017-03-21 09:07 | Emergency (ER) | payer BC, OTHER ==
[~2017-03-21 09:07] MED LIST changes: -AMIO200T4 PO; -APIX1TAB3 PO; -ATOR-24 PO; +BTP80 PO; -CARV12.52 PO; +CMD/25 PO; -DOCU100C31 PO; +DXY100 PO; -FLUT0.15 NAE; +HYDR-5688 PO; +ISR/5 PO; +LEVO125T72 PO; -LEVO75TA5 PO; +PRED10TA PO; -REPA2TAB12 PO; +WARF2.5T8 PO
[2017-03-21] MEDS ORDERED: ACETAMINOPHEN 500 MG TAB PO STA (10:02)
[2017-03-21] MEDS ORDERED: FENTANYL CITRATE INJ 50 MCG/1 ML 2 ML VIAL IV ONE (10:15)
--- NOTE | 2017-03-21 10:18 | EMERGENCY ROOM VISIT NOTE ---
History Report prepared by Bharathi: Frank Christie Under the Supervision of: Dr. Cruz Wilson M.D. First contact with patient: 09:34 Chief Complaint: HIP PAIN Stated Complaint: BACK AND HIP PAIN History of Present Illness The patient is a 76 year old white male with a past medical history of diabetes , GERD, COPD, hypothyroid, CABG, HTN, HLD, A-fib, laminectomy, heart disease, kidney disease, unilateral renal agenesis, bilateral hip replacements, a hernia who presents to the ED with a cc of worsening constant left back and hip pain beginning three weeks ago which he describes as a stabbing pain worsened with movement and relieved with sitting. Negative history of cancer, fever, weight loss, IV drug use, difficulty with urination or defecating, recent trauma, numbness in the groin, hematuria, testicular pain, and history of kidney stones. He notes that the he has never had pain like this before. He has been using a walked for the past 2 weeks due to the pain. Source of History: patient Onset: three weeks ago Position: back, other (right hip) Quality: stabbing Timing: worsening Modifying Factors (Worsening): movement Modifying Factors (Relieving): other (sitting) Associated Symptoms: No fevers, No urinary symptoms, No numbness Review of Systems See HPI for pertinent positives and negatives. A total of ten systems were reviewed and were otherwise negative. Past Medical & Surgical Medical Problems: (1) Atrial fibrillation (2) CAD (coronary artery disease) (3) CKD (chronic kidney disease), stage III (4) COPD (chronic obstructive pulmonary disease) (5) DM (diabetes mellitus) (6) Dyslipidemia (7) Gout (8) HTN (hypertension) (9) Hypothyroidism (10) Ischemic cardiomyopathy (11) Presence of combination internal cardiac defibrillator (ICD) and pacemaker (12) V tach Surgical Problems: (1) H/O cardiac radiofrequency ablation (2) History of back surgery (3) History of cataract surgery (4) History of left hip replacement (5) History of right hip replacement (6) S/P CABG x 2 Family History Cancer Diabetes mellitus Heart disease Hypertension Lung disease Social History Smoking Status: Former Smoker Alcohol Use: occasionally Marital Status: Housing Status: lives with significant other Current/Historical Medications Scheduled Allopurinol (Zyloprim), 300 MG PO QAM Aspirin (Aspirin Chewable), 81 MG PO QAM Cholecalciferol (Vitamin D), 1 TAB PO DAILY Fluticasone Prop/Salmeterol (Advair Diskus 250/50 60 Dose), 1 PUFF INH BID Furosemide (Lasix), 40 MG PO QAM Isosorbide Dinitrate (Isordil), 5 MG PO BID Levothyroxine Sodium (Synthroid), 125 MCG PO DAILY Montelukast Sodium (Montelukast Sodium), 1 TAB PO QAM Prednisone Tab (Prednisone), 10 MG PO DAILY Ranitidine Hcl (Zantac), 150 MG PO BID Roflumilast (Daliresp), 1 TAB PO QAM Sotalol HCl (Sotalol HCl), 80 MG PO DAILY Sotalol HCl (Sotalol HCl), 40 MG PO DAILY@1900 Tiotropium [place] (Spiriva Handihaler), 1 CAP INH QAM Tramadol Hcl (Ultram), 25 MG PO Q8H Warfarin Sod (Jantoven), 2.5 MG PO 5XWK Warfarin Sod (Coumadin), 1.25 MG PO 2XWK Scheduled PRN Albuterol Sulfate (Proair Respiclick), 2 PUFF INH QID PRN for Shortness of Breath Hydrocodone/Acetaminophen 5MG/325MG ([place] 5MG/325MG), 1 TABLET PO Q6H PRN for Pain Allergies Coded Allergies: Adhesives (Verified Adverse Reaction, Intermediate, PULLS SKIN OFF, ) Oxaprozin (Verified Adverse Reaction, Intermediate, KIDNEYS SHUT DOWN, ) Physical Exam Vital Signs Date Time Temp Pulse Resp B/P (MAP) Pulse Ox O2 Delivery O2 Flow Rate FiO2 03/21/17 10:46 65 03/21/17 10:44 65 18 158/90 97 Room Air 03/21/17 09:11 36.3 78 18 88/50 96 Room Air Physical Exam GENERAL: Awake, alert, well-appearing, NAD HENT: Normocephalic, atraumatic. EYES: Normal conjunctiva. Sclera non-icteric. NECK: Supple. No nuchal rigidity. FROM. RESPIRATORY: CTAB, no rhonchi, wheezing, crackles CARDIAC: RRR, no MRG ABDOMEN: Umbilical hernia easily reduced. Soft, NTND, BS+. Mild left flank pain. No CVA TTP. : No testicular or penile pain. No testicular or scrotal swelling. Left groin discomfort. MSK: No chest wall TTP, no LE edema NEURO: GCS 15, CN 2-12 intact, moves all 4s on command. NVI distally bilateral LE SP, DP, and tibialis nerve. LLE ROM limited secondary to pain. SKIN: No rash or jaundice noted. Medical Decision & Procedures ER Provider Diagnostic Interpretation: Radiology results as stated below per my review and radiologist interpretation: CT OF THE ABDOMEN AND PELVIS WITHOUT CONTRAST CLINICAL HISTORY: h/o single kidney, LLQ/groin pain, back pain. COMPARISON STUDY: No previous studies for comparison. TECHNIQUE: Axial images of the abdomen and pelvis were obtained without IV contrast. Images were reviewed in the axial, sagittal, and coronal planes. A dose lowering technique was utilized adhering to the principles of ALARA. FINDINGS: Pacer leads are partially imaged. Heart is moderately enlarged. Visualized portions of the lower lungs demonstrate subpleural reticulation with suspected honeycombing. There may be underlying emphysema. There are groundglass opacities. No pneumatosis, free air or portal venous gas is present. The left kidney is not visualized. There is hypertrophy of the right kidney as expected. No right hydronephrosis. A 1.1 cm lesion arising from the upper pole of the right kidney measures just above water attenuation. This is suboptimally assessed on this unenhanced exam. There is no right hydronephrosis. There are tiny gallstones within the gallbladder without evidence of acute cholecystitis. Unenhanced images of liver, spleen, adrenal glands and pancreas are unremarkable. There is no biliary or pancreatic ductal dilatation dilatation. There is no abdominal or pelvic lymphadenopathy. The infrarenal abdominal aorta is ectatic, measuring 2.7 cm. A fat-containing umbilical hernia is noted. Colonic diverticulosis without evidence for rupture. Images of the pelvis are degraded by streak artifact from bilateral hip arthroplasties. No suspicious osseous lesions are present. There are postoperative findings within the lumbar spine consistent with L2-S1 laminectomy. There is mild to moderate levoscoliosis of the lower lumbar spine. Healing fractures of multiple left transverse process within the lumbar spine. IMPRESSION: 1. Nonvisualization of the left kidney. No right renal calculi or hydronephrosis. 2. No acute process within the abdomen or pelvis on unenhanced exam. 3. Cholelithiasis without evidence for acute cholecystitis. 4. Findings suggestive of interstitial lung disease with a UIP pattern within the lower lungs with possible superimposed emphysema. 5. Postoperative finding within the lumbar spine, as described above. Multiple healing left transverse process fractures. Electronically signed by: Vito Thompson M.D. 03/21/2017 10:49 AM Dictated Date/Time: 03/21/2017 10:38 AM Laboratory Results 03/21/17 10:10 Red Blood Count 3.68, Mean Corpuscular Volume 98.4, Mean Corpuscular Hemoglobin 31.0, Mean Corpuscular Hemoglobin Concent 31.5, Mean Platelet Volume 9.3, Neutrophils (%) (Auto) 79.4, Lymphocytes (%) (Auto) 10.0, Monocytes (%) (Auto) 8.1, Eosinophils (%) (Auto) 1.6, Basophils (%) (Auto) 0.3, Neutrophils # (Auto) 8.98, Lymphocytes # (Auto) 1.13, Monocytes # (Auto) 0.92, Eosinophils # (Auto) 0.18, Basophils # (Auto) 0.03 03/21/17 10:10 Test 03/21/17 10:10 03/21/17 10:30 White Blood Count 11.31 K/uL (4.8-10.8) Red Blood Count 3.68 M/uL (4.7-6.1) Hemoglobin 11.4 g/dL (14.0-18.0) Hematocrit 36.2 % (42-52) Mean Corpuscular Volume 98.4 fL (80-100) Mean Corpuscular Hemoglobin 31.0 pg (25-34) Mean Corpuscular Hemoglobin Concent 31.5 g/dl (32-36) Platelet Count 325 K/uL (130-400) Mean Platelet Volume 9.3 fL (7.4-10.4) Neutrophils (%) (Auto) 79.4 % Lymphocytes (%) (Auto) 10.0 % Monocytes (%) (Auto) 8.1 % Eosinophils (%) (Auto) 1.6 % Basophils (%) (Auto) 0.3 % Neutrophils # (Auto) 8.98 K/uL (1.4-6.5) Lymphocytes # (Auto) 1.13 K/uL (1.2-3.4) Monocytes # (Auto) 0.92 K/uL (0.11-0.59) Eosinophils # (Auto) 0.18 K/uL (0-0.5) Basophils # (Auto) 0.03 K/uL (0-0.2) RDW Standard Deviation 57.4 fL (36.4-46.3) RDW Coefficient of Variation 16.0 % (11.5-14.5) Immature Granulocyte % (Auto) 0.6 % Immature Granulocyte # (Auto) 0.07 K/uL (0.00-0.02) Prothrombin Time 18.1 SECONDS (9.0-12.0) Prothromb Time International Ratio 1.7 (0.9-1.1) Activated Partial Thromboplast Time 35.0 SECONDS (21.0-31.0) Partial Thromboplastin Ratio 1.3 Anion Gap 7.0 mmol/L (3-11) Estimated GFR () 62.2 Estimated GFR (Non- 53.6 BUN/Creatinine Ratio 10.9 (10-20) Calcium Level 9.2 mg/dl (8.5-10.1) Total Bilirubin 0.3 mg/dl (0.2-1) Direct Bilirubin < 0.1 mg/dl (0-0.2) Aspartate Amino Transf (AST/SGOT) 21 U/L (15-37) Alanine Aminotransferase (ALT/SGPT) 21 U/L (12-78) Alkaline Phosphatase 82 U/L (45-117) Total Protein 7.1 gm/dl (6.4-8.2) Albumin 2.3 gm/dl (3.4-5.0) Lipase 171 U/L (73-393) Urine Color YELLOW Urine Appearance CLEAR (CLEAR) Urine pH 7.5 (4.5-7.5) Urine Specific [place] 1.011 (1.000-1.030) Urine Protein NEG (NEG) Urine Glucose (UA) NEG (NEG) Urine Ketones NEG (NEG) Urine Occult Blood NEG (NEG) Urine Nitrite NEG (NEG) Urine Bilirubin NEG (NEG) Urine Urobilinogen NEG (NEG) Urine Leukocyte Esterase NEG (NEG) Laboratory results reviewed by me Medications Administered Medications (Trade) Dose Ordered Sig/Latesha Route Start Time Stop Time Status Last Admin Dose Admin Acetaminophen (Tylenol Tab) 1,000 mg NOW STAT PO 03/21/17 10:02 03/21/17 10:04 DC 03/21/17 10:16 1,000 MG Fentanyl Citrate (Fentanyl Inj) 50 mcg NOW ONCE IV 03/21/17 10:15 03/21/17 10:16 DC 03/21/17 10:16 50 MCG ED Course 0934: The patient was evaluated in room B12. A complete history and physical exam was performed. 1146: I reevaluated the patient, and he was agreeable to go home with a follow up with a spinal specialist and his PCP as well as for physical therapy. He will be discharged home. Medical Decision The patient is a 76 year old white male with a past medical history of diabetes , GERD, COPD, hypothyroid, CABG, HTN, HLD, A-fib, laminectomy, heart disease, kidney disease, unilateral renal agenesis, bilateral hip replacements, a hernia who presents to the ED with a cc of worsening constant left back and hip pain beginning three weeks ago which he describes as a stabbing pain worsened with movement and relieved with sitting. Differential diagnosis: Etiologies such as fracture, dislocation, neurovascular compromise, compartment syndrome, soft tissue injury, as well as others were entertained. Patient was seen and evaluated the bedside. She was recently admitted and discharged for a flutter and COPD. Patient is a prior history of A. fib, CABG, bilateral hip, spinal laminectomy. Patient does state he was having some difficulty with pain and some walking. Patient denies any lower extremity weakness, saddle anesthesia, bowel or bladder incontinence or retention, numbness, tingling. Patient denies any recent trauma. Patient does not have any lower shotty swelling. On exam the patient really does not have focal points of discomfort. Patient did have some very mild left lower back discomfort. Patient does have some limited left lower shortly strength secondary to pain. Patient did have blood work, along with a CT abdomen pelvis and symptom control. Patient's CT the head pelvis was a non-con study given the patient's single kidney. Patient did have postoperative findings. Patient also now did have some left-sided lumbar TP fractures that were healing. Patient denies any recent falls. Patient's white blood cell count 11,000. Patient's hemoglobin 11 and does have chronic anemia this is essentially unchanged. Patient with baseline kidney function does have mild CK D creatinine of 1.2. Upon reassessment the patient's pain is improved and the patient is able to move his left lower extremity with increasing ease. Patient was told he should follow-up with spinal specialist as well as his PCP. Patient was told he may benefit from physical therapy and or pain management. Patient was deemed suitable for outpatient follow-up and treatment at this time. Patient agreed with plan of care and patient was safely discharged home. Medication Reconcilliation Current Medication List: was personally reviewed by me Blood Pressure Screening Patient's blood pressure: Elevated blood pressure Blood pressure disposition: Referred to PCP Low blood pressure at first Impression Primary Impression: Hip pain, chronic Additional Impressions: Hip pain, left Back pain Scribe Attestation The scribe's documentation has been prepared under my direction and personally reviewed by me in its entirety. I confirm that the note above accurately reflects all work, treatment, procedures, and medical decision making performed by me. Departure Information Dispostion Home / Self-Care Prescriptions Tramadol Hcl (ULTRAM) 50 Mg Tab 25 MG PO Q8H, #15 TAB PRN PAIN Prov: Cruz Wilson M.D. 03/21/17 Referrals Jey Gee PA-C (PCP) Forms HOME CARE DOCUMENTATION FORM, IMPORTANT VISIT INFORMATION, WORK / SCHOOL INSTRUCTIONS Patient Instructions Back Pain - [facility], Back Pain Relieve, [facility] Additional Instructions Please return to the emergency department if you have worsening or recurrent symptoms not amenable to at-home treatment. Please call for a follow-up appointment with her primary care physician. Please take your medications as prescribed. If you have other concerns and/or complaints please feel free to also call your primary care physician's office or return the ED for further evaluation, management, and treatment. You were found to have an elevated blood pressure today (>120 sytolic or >90 diastolic). Per medicare guidelines, you need to follow up with this blood pressure screening with your Primary Care Physician (PCP). For a new PCP call [phone]. You received narcotic or benzodiazepene medication while in the emergency room today. This is an addictive medication that may cause drowziness as well as constipation. Do not drive, operate heavy machinery, or drink alcohol under the influence of this medication. You may take 200 mg Ibuprofen every 6 hours occasionally as needed for pain; however, do not take routinely as this can raise blood pressure and cause kidney problems. You may take Tylenol. Please follow up with your primary care physician and spinal specialist. You may need to follow up with pain management and/or physical therapy. If still in pain you may try taking tramadol. It may make you sleepy/sedated so please use with caution and not when alone or when you need your full attention. Take your medications as prescribed. If taking an antibiotic consider taking a probiotic and/or eating yogurt, but at the least, please take with food as it can cause upset stomach. If culture results are not available at discharge, if they are positive for concern of infection, you will be informed of the results as soon as they are available. If you were seen between 11pm and 7AM all radiology reads will be re-read by our in house staff. If any major discrepancies are discovered, you will be notified. You have been examined and treated today on an emergency basis only. This is not a substitute for, or an effort to provide, complete comprehensive medical care. It is impossible to recognize and treat all injuries or illnesses in a single emergency department visit. It is therefore important that you follow up closely with [facility], your PCP, and/or your specialist(s). Call as soon as possible for an appointment. Thank you for your time and consideration. I look forward to speaking with you again soon. Please don't hesitate to call us if you have any questions. Problem Qualifiers Primary Impression: Hip pain, chronic Laterality: left Qualified Codes: M25.552 - Pain in left hip; G89.29 - Other chronic pain Additional Impressions: Back pain Back pain location: low back pain Chronicity: chronic Back pain laterality : left Sciatica presence: without sciatica Qualified Codes: M54.5 - Low back pain; G89.29 - Other chronic pain
[2017-03-21 10:26] LABS: BASO % 0.3 %; BASO ABS # 0.03 K/uL (0-0.2); EOS % 1.6 %; EOS ABS # 0.18 K/uL (0-0.5); HEMATOCRIT 36.2 % (42-52); HEMOGLOBIN 11.4 g/dL (14.0-18.0); IG# 0.07 K/uL (0.00-0.02); LYMPH ABS # 1.13 K/uL (1.2-3.4); MEAN CELL VOLUME 98.4 fL (80-100); MEAN CORPUSCULAR HGB CONC 31.5 g/dl (32-36); MEAN PLATELET VOLUME 9.3 fL (7.4-10.4); MONO % 8.1 %; MONO ABS # 0.92 K/uL (0.11-0.59); NEUT % 79.4 %; NEUT ABS # 8.98 K/uL (1.4-6.5); PLATELET COUNT 325 K/uL (130-400); RED CELL DISTRIBUTION WIDTH SD 57.4 fL (36.4-46.3); WHITE BLOOD COUNT 11.31 K/uL (4.8-10.8)
[2017-03-21 10:36] LABS: INR 1.7 (0.9-1.1)
[2017-03-21 10:44] LABS: ALBUMIN 2.3 gm/dl (3.4-5.0); ALT/SGPT 21 U/L (12-78); BLOOD UREA NITROGEN 14 mg/dl (7-18); CALCIUM 9.2 mg/dl (8.5-10.1); CARBON DIOXIDE 30 mmol/L (21-32); CREATININE 1.28 mg/dl (0.60-1.40); GLUCOSE 191 mg/dl (70-99); LIPASE 171 U/L (73-393); POTASSIUM 4.4 mmol/L (3.5-5.1); SODIUM 134 mmol/L (136-145)
[2017-03-21 10:47] LABS: ALKALINE PHOSPHATASE 82 U/L (45-117); AST/SGOT 21 U/L (15-37); TOTAL PROTEIN 7.1 gm/dl (6.4-8.2)
--- NOTE | 2017-03-21 10:50 | DIAGNOSTIC IMAGING REPORT ---
CT OF THE ABDOMEN AND PELVIS WITHOUT CONTRAST CLINICAL HISTORY: h/o single kidney, LLQ/groin pain, back pain. COMPARISON STUDY: No previous studies for comparison. TECHNIQUE: Axial images of the abdomen and pelvis were obtained without IV contrast. Images were reviewed in the axial, sagittal, and coronal planes. A dose lowering technique was utilized adhering to the principles of ALARA. FINDINGS: Pacer leads are partially imaged. Heart is moderately enlarged. Visualized portions of the lower lungs demonstrate subpleural reticulation with suspected honeycombing. There may be underlying emphysema. There are groundglass opacities. No pneumatosis, free air or portal venous gas is present. The left kidney is not visualized. There is hypertrophy of the right kidney as expected. No right hydronephrosis. A 1.1 cm lesion arising from the upper pole of the right kidney measures just above water attenuation. This is suboptimally assessed on this unenhanced exam. There is no right hydronephrosis. There are tiny gallstones within the gallbladder without evidence of acute cholecystitis. Unenhanced images of liver, spleen, adrenal glands and pancreas are unremarkable. There is no biliary or pancreatic ductal dilatation dilatation. There is no abdominal or pelvic lymphadenopathy. The infrarenal abdominal aorta is ectatic, measuring 2.7 cm. A fat-containing umbilical hernia is noted. Colonic diverticulosis without evidence for rupture. Images of the pelvis are degraded by streak artifact from bilateral hip arthroplasties. No suspicious osseous lesions are present. There are postoperative findings within the lumbar spine consistent with L2-S1 laminectomy. There is mild to moderate levoscoliosis of the lower lumbar spine. Healing fractures of multiple left transverse process within the lumbar spine. IMPRESSION: 1. Nonvisualization of the left kidney. No right renal calculi or hydronephrosis. 2. No acute process within the abdomen or pelvis on unenhanced exam. 3. Cholelithiasis without evidence for acute cholecystitis. 4. Findings suggestive of interstitial lung disease with a UIP pattern within the lower lungs with possible superimposed emphysema. 5. Postoperative finding within the lumbar spine, as described above. Multiple healing left transverse process fractures. Electronically signed by: Vito Thompson M.D. 03/21/2017 10:49 AM Dictated Date/Time: 03/21/2017 10:38 AM
[2017-03-21] MEDS ORDERED: TRAM-453 PO (12:11)
[2017-03-21 13:18] VITALS: BP 149/91; PULSE 68; TEMP 36.4; O2SAT 95
== END 2017-03-21 13:18 | disposition home or self-care (01) ==
LOC: C.EDB 09:09
DX: M25.552 Pain in left hip (principal); M54.5 Low back pain; G89.29 Other chronic pain; J44.9 Chronic obstructive pulmonary disease, unspecified; I48.92 Unspecified atrial flutter; E11.9 Type 2 diabetes mellitus without complications; K21.9 Gastro-esophageal reflux disease without esophagitis; E03.9 Hypothyroidism, unspecified; I10 Essential (primary) hypertension; E78.5 Hyperlipidemia, unspecified; Z95.1 Presence of aortocoronary bypass graft; M10.9 Gout, unspecified; I25.5 Ischemic cardiomyopathy; Z96.643 Presence of artificial hip joint, bilateral; Z80.9 Family history of malignant neoplasm, unspecified; Z83.3 Family history of diabetes mellitus; Z82.49 Family history of ischemic heart disease and other diseases of the circulatory system; Z83.6 Family history of other diseases of the respiratory system; Z87.891 Personal history of nicotine dependence; Z79.82 Long term (current) use of aspirin; Z79.01 Long term (current) use of anticoagulants; Z79.899 Other long term (current) drug therapy